=== PATIENT | female | born 1950 | race American Indian/Alaskan Native ===

== ENCOUNTER 2021-08-22 11:10 | Inpatient (IN) | payer MEDICARE ==
[2021-08-22] MEDS ORDERED: ONDANSETRON 4 MG/2 ML INJ IV ONE (13:32)
[2021-08-22] MEDS ORDERED: MORPHINE 4 MG/1 ML INJ IV ONE (13:32)
--- NOTE | 2021-08-22 13:32 | Emergency Department Report ---
ED General Adult HPI - General Chief complaint: Altered Mental Status Stated complaint: RT KNEE PAIN Time Seen by Provider: 08/22/21 12:56 Source: EMS Mode of arrival: Stretcher Limitations: No Limitations - History of Present Illness Initial comments: The patient presents to the emergency department via EMS for complaint of dizziness. Patient states she was walking to the bus stop and got severely dizzy. Patient states the dizziness caused her to lose her balance and she fell. Patient states that she had some mild chest tightness at the time but denies any lionel chest pain. Patient complains of neck, right knee pain, hip pain. Patient denies any shortness of breath, abdominal pain, or chest pain. -: Sudden Location: head, neck, lower extremity Severity scale (0 -10): 10 Quality: sharp Consistency: constant Improves with: immobilization Worsens with: movement Associated Symptoms: denies other symptoms Treatments Prior to Arrival: none - Related Data Allergies Allergy/AdvReac Type Severity Reaction Status Date / Time No Known Allergies Allergy Verified 08/22/21 11:18 ED Review of Systems ROS: Stated complaint: RT KNEE PAIN Other details as noted in HPI Comment: All other systems reviewed and negative Constitutional: denies: chills, fever Eyes: denies: eye pain, eye discharge, vision change ENT: denies: ear pain, throat pain Respiratory: denies: cough, shortness of breath, wheezing Cardiovascular: denies: chest pain, palpitations Endocrine: no symptoms reported Gastrointestinal: denies: abdominal pain, nausea, diarrhea Genitourinary: denies: urgency, dysuria, discharge Musculoskeletal: denies: back pain, joint swelling, arthralgia Skin: denies: rash, lesions Neurological: denies: headache, weakness, paresthesias Psychiatric: denies: anxiety, depression Hematological/Lymphatic: denies: easy bleeding, easy bruising ED Past Medical Hx - Past Medical History Previous Medical History?: Yes Hx Hypertension: Yes Hx Seizures: Yes - Surgical History Past Surgical History?: No - Social History Smoking Status: Current Every Day Smoker Substance Use Type: Marijuana ED Physical Exam - General Limitations: No Limitations General appearance: alert, in no apparent distress - Head Head exam: Present: atraumatic, normocephalic - Eye Eye exam: Present: normal appearance, PERRL, EOMI - ENT ENT exam: Present: mucous membranes dry - Neck Neck exam: Present: other (Tenderness palpation midline C-spine) - Respiratory Respiratory exam: Present: normal lung sounds bilaterally - Cardiovascular Cardiovascular Exam: Present: tachycardia - GI/Abdominal GI/Abdominal exam: Present: soft, normal bowel sounds. Absent: distended, tenderness - Extremities Exam Extremities exam: Present: other (Tender palpation of the right patella) - Neurological Exam Neurological exam: Present: alert, altered, CN II-XII intact. Absent: motor sensory deficit - Psychiatric Psychiatric exam: Present: normal affect, normal mood - Skin Skin exam: Present: warm, dry, intact, normal color. Absent: rash ED Course Vital Signs 08/22/21 08/22/21 08/22/21 11:14 12:58 14:19 Temperature 97.8 F 98.1 F Pulse Rate 106 H 94 H Respiratory 18 14 15 Rate Blood Pressure 113/73 Blood Pressure 106/61 124/82 [Left] O2 Sat by Pulse 99 96 Oximetry 08/22/21 16:06 Temperature Pulse Rate 99 H Respiratory 16 Rate Blood Pressure Blood Pressure 107/65 [Left] O2 Sat by Pulse 99 Oximetry ED Medical Decision Making - Lab Data Result diagrams: 08/22/21 13:31 08/22/21 13:31 Lab Results 08/22/21 08/22/21 08/22/21 Range/Units 13:31 13:31 15:51 WBC 8.0 (4.5-11.0) K/mm3 RBC 2.59 L (3.65-5.03) M/mm3 Hgb 7.3 L (10.1-14.3) gm/dl Hct 23.2 L (30.3-42.9) % MCV 90 (79-97) fl MCH 28 (28-32) pg MCHC 32 (30-34) % RDW 16.2 H (13.2-15.2) % Plt Count 480 H (140-440) K/mm3 Lymph % (Auto) 9.0 L (13.4-35.0) % [place] % (Auto) 4.5 (0.0-7.3) % Eos % (Auto) 0.0 (0.0-4.3) % Baso % (Auto) 0.1 (0.0-1.8) % Lymph # (Auto) 0.7 L (1.2-5.4) K/mm3 [place] # (Auto) 0.4 (0.0-0.8) K/mm3 Eos # (Auto) 0.0 (0.0-0.4) K/mm3 Baso # (Auto) 0.0 (0.0-0.1) K/mm3 Seg Neutrophils % 86.4 H (40.0-70.0) % Seg Neutrophils # 6.9 (1.8-7.7) K/mm3 Sodium 140 (137-145) mmol/L Potassium 3.3 L (3.6-5.0) mmol/L Chloride 100.6 (98-107) mmol/L Carbon Dioxide 28 (22-30) mmol/L Anion Gap 15 mmol/L BUN 13 (7-17) mg/dL Creatinine 0.8 (0.6-1.2) mg/dL Estimated GFR > 60 ml/min BUN/Creatinine Ratio 16 % Glucose 88 (65-100) mg/dL Calcium 8.8 (8.4-10.2) mg/dL Total Bilirubin 0.20 (0.1-1.2) mg/dL AST 18 (5-40) units/L ALT 12 (7-56) units/L Alkaline Phosphatase 67 (35-129) units/L Troponin T < 0.010 (0.00-0.029) ng/mL NT-Pro-B Natriuret Pep 300.2 (0-900) pg/mL Total Protein 6.5 (6.3-8.2) g/dL Albumin 3.7 L (3.9-5) g/dL Albumin/Globulin Ratio 1.3 % Urine Color Straw (Yellow) Urine Turbidity Clear (Clear) Urine pH 7.5 H (5.0-7.0) Ur Specific [place] 1.010 (1.003-1.030) Urine Protein 30 mg/dl (Negative) mg/dL Urine Glucose (UA) Negative (Negative) mg/dL Urine Ketones 80 (Negative) mg/dL Urine Blood Negative (Negative) Urine Nitrite Negative (Negative) Ur Reducing Substances Not Reportable Urine Bilirubin Negative (Negative) Urine Ictotest Not Reportable Urine Urobilinogen < 2.0 (<2.0) mg/dL Ur Leukocyte Esterase Negative (Negative) Urine WBC (Auto) 4.0 (0.0-6.0) /HPF Urine RBC (Auto) 2.0 (0.0-6.0) /HPF Urine Bacteria (Auto) 1+ (Negative) /HPF Amorphous Crystals 3+ Urine Mucus Few /HPF Urine Opiates Screen Urine Methadone Screen Ur Barbiturates Screen Ur Phencyclidine Scrn Ur Amphetamines Screen U Benzodiazepines Scrn Urine Cocaine Screen U Marijuana (THC) Screen Drugs of Abuse Note 08/22/21 Range/Units 15:51 WBC (4.5-11.0) K/mm3 RBC (3.65-5.03) M/mm3 Hgb (10.1-14.3) gm/dl Hct (30.3-42.9) % MCV (79-97) fl MCH (28-32) pg MCHC (30-34) % RDW (13.2-15.2) % Plt Count (140-440) K/mm3 Lymph % (Auto) (13.4-35.0) % [place] % (Auto) (0.0-7.3) % Eos % (Auto) (0.0-4.3) % Baso % (Auto) (0.0-1.8) % Lymph # (Auto) (1.2-5.4) K/mm3 [place] # (Auto) (0.0-0.8) K/mm3 Eos # (Auto) (0.0-0.4) K/mm3 Baso # (Auto) (0.0-0.1) K/mm3 Seg Neutrophils % (40.0-70.0) % Seg Neutrophils # (1.8-7.7) K/mm3 Sodium (137-145) mmol/L Potassium (3.6-5.0) mmol/L Chloride (98-107) mmol/L Carbon Dioxide (22-30) mmol/L Anion Gap mmol/L BUN (7-17) mg/dL Creatinine (0.6-1.2) mg/dL Estimated GFR ml/min BUN/Creatinine Ratio % Glucose (65-100) mg/dL Calcium (8.4-10.2) mg/dL Total Bilirubin (0.1-1.2) mg/dL AST (5-40) units/L ALT (7-56) units/L Alkaline Phosphatase (35-129) units/L Troponin T (0.00-0.029) ng/mL NT-Pro-B Natriuret Pep (0-900) pg/mL Total Protein (6.3-8.2) g/dL Albumin (3.9-5) g/dL Albumin/Globulin Ratio % Urine Color (Yellow) Urine Turbidity (Clear) Urine pH (5.0-7.0) Ur Specific [place] (1.003-1.030) Urine Protein (Negative) mg/dL Urine Glucose (UA) (Negative) mg/dL Urine Ketones (Negative) mg/dL Urine Blood (Negative) Urine Nitrite (Negative) Ur Reducing Substances Urine Bilirubin (Negative) Urine Ictotest Urine Urobilinogen (<2.0) mg/dL Ur Leukocyte Esterase (Negative) Urine WBC (Auto) (0.0-6.0) /HPF Urine RBC (Auto) (0.0-6.0) /HPF Urine Bacteria (Auto) (Negative) /HPF Amorphous Crystals Urine Mucus /HPF Urine Opiates Screen Negative Urine Methadone Screen Negative Ur Barbiturates Screen Negative Ur Phencyclidine Scrn Negative Ur Amphetamines Screen Negative U Benzodiazepines Scrn Negative Urine Cocaine Screen Negative U Marijuana (THC) Screen Positive Drugs of Abuse Note Disclamer - EKG Data -: EKG Interpreted by [place] EKG shows normal: sinus rhythm Rate: normal - Radiology Data Radiology results: report reviewed - Medical Decision Making Discussed results with patient including x-ray findings of intratrochanteric f racture right side Critical care attestation.: If time is entered above; I have spent that time in minutes in the direct care of this critically ill patient, excluding procedure time. ED Disposition Clinical Impression: Intertrochanteric fracture of right femur Disposition: ADMITTED INPATIENT Is pt being admited?: Yes Does the pt Need Aspirin: No Condition: Fair
[2021-08-22] MEDS ORDERED: SODIUM CHLORIDE 0.9% 1000 ML 1,000 ML IV ONE (13:33)
--- NOTE | 2021-08-22 14:17 | XRay Report ---
CHEST 1 VIEW INDICATION: dizziness. COMPARISON: None. FINDINGS: Support devices: None. Heart: Normal. Lungs/Pleura: No acute pulmonary or pleural findings. Lungs are mildly hyperexpanded. IMPRESSION: 1. No acute findings. Signer Name: Matthew Del Cid MD Signed: 08/22/2021 2:13 PM Workstation Name: [id number]
--- NOTE | 2021-08-22 14:18 | XRay Report ---
AP PELVIS INDICATION / CLINICAL INFORMATION: fall/pain COMPARISON: None available. FINDINGS: BONES / JOINT(S): There is a mildly comminuted, mildly displaced intertrochanteric proximal right fem ur fracture. No additional acute fractures are identified. Osteoarthrosis changes are noted at the hi ps and SI joints. There is mild subjective osteopenia. SOFT TISSUES: No significant abnormality. ADDITIONAL FINDINGS: None. IMPRESSION: Intertrochanteric proximal right femur fracture. Signer Name: Matthew Del Cid MD Signed: 08/22/2021 2:14 PM Workstation Name: [email or web address]
--- NOTE | 2021-08-22 14:19 | XRay Report ---
RIGHT KNEE 2 VIEWS INDICATION / CLINICAL INFORMATION: fall/pain COMPARISON: None available. FINDINGS: BONES / JOINT(S): No acute fracture or subluxation. There is mild tricompartmental osteoarthrosis. SOFT TISSUES: No significant abnormality. ADDITIONAL FINDINGS: None. IMPRESSION: No acute findings. Signer Name: Matthew Del Cid MD Signed: 08/22/2021 2:15 PM Workstation Name: [email or web address]
[2021-08-22 14:36] LABS: Basophils % (Auto) 0.1 % (0.0-1.8); Hematocrit 23.2 % (30.3-42.9); Hemoglobin 7.3 gm/dl (10.1-14.3); Lymphocytes # (Auto) 0.7 K/mm3 (1.2-5.4); Mean Corpuscular HGB Conc 32 % (30-34); Mean Corpuscular Volume 90 fl (79-97); Monocytes # (Auto) 0.4 K/mm3 (0.0-0.8); Monocytes % (Auto) 4.5 % (0.0-7.3); Platelet Count 480 K/mm3 (140-440); Red Blood Count 2.59 M/mm3 (3.65-5.03); Red Cell Distribution Width 16.2 % (13.2-15.2)
[2021-08-22 14:40] LABS: Alanine Aminotransferase 12 units/L (7-56); Albumin 3.7 g/dL (3.9-5); BUN/Creatinine Ratio 16; Blood Urea Nitrogen 13 mg/dL (7-17); Calcium 8.8 mg/dL (8.4-10.2); Hemolysis Index 4
[2021-08-22 16:25] LABS: Amphetamine Screen,Urine Negative; Benzodiazepines Screen,Urine Negative; Cocaine Screen,Urine Negative; Methadone Screen,Urine Negative; Opiate Screen,Urine Negative
[2021-08-22 16:28] LABS: Amorphous Crystals,Urine 3+; Bacteria,Urine 1+ /HPF (Negative); Mucus,Urine FEW /HPF
[2021-08-22 16:38] LABS: Cannabinoid Screen,Urine Positive
--- NOTE | 2021-08-22 16:55 | Cat Scan Report ---
CT HEAD WITHOUT CONTRAST INDICATION / CLINICAL INFORMATION: dizziness. Status post fall. TECHNIQUE: All CT scans at this location are performed using CT dose reduction for ALARA by means of automated exposure control. COMPARISON: None available. FINDINGS: HEMORRHAGE: None. EXTRA-AXIAL SPACES: Mildly prominent likely related to cortical atrophy. VENTRICULAR SYSTEM: Mildly enlarged likely related to central atrophy. CEREBRAL PARENCHYMA: Mild white matter hypodensities likely representing microangiopathy. No acute te rritorial infarct. MIDLINE SHIFT / HERNIATION: None. CEREBELLUM / BRAINSTEM: No significant abnormality. ORBITS: Normal as visualized. SOFT TISSUES: No significant abnormality. SKULL: No significant abnormality. PARANASAL SINUSES / MASTOID AIR CELLS: Normal as visualized. ADDITIONAL FINDINGS: None. IMPRESSION: 1. No acute intracranial abnormality. . Chronic and age-related findings. Signer Name: Maria Luisa Ruelas MD Signed: 08/22/2021 4:50 PM Workstation Name: [id number]
--- NOTE | 2021-08-22 16:56 | Cat Scan Report ---
CT CERVICAL SPINE WITHOUT CONTRAST INDICATION / CLINICAL INFORMATION: neck pain s/p fall. TECHNIQUE: Axial CT images were obtained through the cervical spine. Sagittal and coronal reformatted images were produced. All CT scans at this location are performed using CT dose reduction for ALARA by means of automated exposure control. COMPARISON: None available. FINDINGS: VERTEBRAE: No significant abnormality. ALIGNMENT: No significant abnormality. DISC SPACES: Mild multilevel discogenic spondylosis. FACET JOINTS: Mild multilevel facet spondylosis. CRANIOCERVICAL JUNCTION:No significant abnormality. SPINAL CANAL: No significant abnormality. PARASPINAL SOFT TISSUES: No significant abnormality. ADDITIONAL FINDINGS: None. LUNG APICES: No significant abnormality of visualized lungs. IMPRESSION: 1. No acute abnormality. Signer Name: Maria Luisa Ruelas MD Signed: 08/22/2021 4:51 PM Workstation Name: [id number]
--- NOTE | 2021-08-22 16:57 | Cat Scan Report ---
CTA CHEST WITH CONTRAST INDICATION / CLINICAL INFORMATION: near syncope/tachycardic chest pain. TECHNIQUE: Axial CT images were obtained through the chest after injection of 100 cc of Omnipaque 350 IV contrast. 3 plane MIP and/or 3D reconstructions were produced. All CT scans at this location are performed using CT dose reduction for ALARA by means of automated exposure control. COMPARISON: None available. FINDINGS: PULMONARY ARTERIES: No pulmonary emboli. THORACIC AORTA: Mild atherosclerotic calcification without acute abnormality. HEART: No significant abnormality. CORONARY ARTERY CALCIFICATION: Mild. MEDIASTINUM / TU: No significant abnormality. PLEURA: No pleural effusion. No pneumothorax. LUNGS: No acute air space or interstitial disease. ADDITIONAL FINDINGS: None. UPPER ABDOMEN: No acute findings. SKELETAL STRUCTURES: No significant osseous abnormality. IMPRESSION: 1. No CT evidence for pulmonary embolism. 2. No acute findings. Signer Name: Maksim Arnett DO Signed: 08/22/2021 4:52 PM Workstation Name: [email or web address]
[2021-08-22 17:20] LABS: Bilirubin,Urine Negative (Negative); Blood,Urine Negative (Negative); Color,Urine Straw (Yellow)
[2021-08-22 17:21] LABS: PH,Urine 7.5 (5.0-7.0); Urobilinogen,Urine < 2.0 mg/dL (<2.0)
[2021-08-22] MEDS ORDERED: ACETAMINOPHEN 325 MG TAB PO PRN (17:58)
[2021-08-22] MEDS ORDERED: ONDANSETRON 4 MG/2 ML INJ IV PRN (17:58)
[2021-08-22] MEDS ORDERED: ALBUTEROL 2.5 MG/3 ML NEBU IH PRN (17:58)
--- NOTE | 2021-08-22 17:58 | History and Physical Report ---
History of Present Illness Chief complaint: I fell and hurt my leg History of present illness: 71 YO Female with HTN, Seizure Disorder, Nicotine Dependence presents ED for evaluation. Patient reports "I got dizzy and I fell down and hurt my leg". Patient states that she was in her usual state of health while walking to the bus stop and experienced a sudden onset of dizziness. Patient states that she subsequently lost her balance and fell landing on her right hip. Patient states that she felt immediate pain to her right hip. Patient is sharp in nature, 10 out of 10, worsened with movement, relieved somewhat with nonmovement. Patient was unable to stand and bear weight on her right leg. EMS was notified and upon arrival the patient was found to be in distress and subsequent transported to [facility] for further care and evaluation of the aforementioned symptoms. The patient was seen and evaluated in the emergency department. All lab and imaging studies reviewed. Patient found to have a right intertrochanteric femur fracture. Orthopedic surgery team consulted in ED. Patient denies fever, chills, chest pain, palpitation, productive cough, skin rash and recent contact, known exposure to COVID-19. No prior admission for review. No medication listed at time of admission for reconciliation. Advanced care planning conducted in ED. Past History Past Medical History: hypertension, seizures, other (See HPI) Past Surgical History: No surgical history Social history: smoking Family history: diabetes, hypertension Medications and Allergies Allergies Allergy/AdvReac Type Severity Reaction Status Date / Time No Known Allergies Allergy Verified 08/22/21 11:18 Review of Systems Constitutional: weakness, no weight loss, no weight gain, no fever, no sweats Ears, nose, mouth and throat: no ear pain, no nasal congestion, no nasal discharge, no sinus pressure Breasts: no change in shape Cardiovascular: no chest pain, no orthopnea, no palpitations, no edema, no syncope Respiratory: no cough, no cough with sputum, no excessive sputum, no shortness of breath Gastrointestinal: no nausea, no vomiting, no diarrhea Genitourinary Female: no flank pain, no dysuria, no urinary frequency, no urgency Rectal: no pain, no incontinence, no bleeding Musculoskeletal: other (Right hip pain), no neck stiffness, no neck pain, no arm numbness/tingling, no low back pain, no shooting leg pain, no leg numbness /tingling Integumentary: no boils Neurological: no head injury, no paralysis, no weakness Psychiatric: no anxiety, no change in sleep habits, no insomnia, no suicidal ideation, no disorientation Endocrine: no cold intolerance, no polyphagia, no nocturia Hematologic/Lymphatic: no easy bruising Allergic/Immunologic: no urticaria Exam - Constitutional Vitals: Temp Pulse Resp BP Pulse Ox 98.1 F 101 H 16 113/70 100 08/22/21 12:58 08/22/21 17:51 08/22/21 17:51 08/22/21 17:51 08/22/21 17:51 General appearance: Present: mild distress - EENT Eyes: Present: PERRL ENT: hearing intact, clear oral mucosa - Neck Neck: Present: supple, normal ROM - Respiratory Respiratory effort: normal Respiratory: bilateral: CTA - Cardiovascular Heart Sounds: Present: S1 & S2. Absent: rub, click - Extremities Extremities: pulses symmetrical, No edema, abnormal (Right hip pain,) Peripheral Pulses: within normal limits - Abdominal General gastrointestinal: Present: soft, non-tender, non-distended, normal bowel sounds Female genitourinary: Present: normal - Integumentary Integumentary: Present: clear, warm, dry - Musculoskeletal Musculoskeletal: gait normal, strength equal bilaterally - Psychiatric Psychiatric: appropriate mood/affect, intact judgment & insight - Neurologic Neurologic: CNII-XII intact, moves all extremities HEART Score - HEART Score Troponin: Troponin T < 0.010 ng/mL (0.00-0.029) 08/22/21 13:31 Results - Labs CBC & Chem 7: 08/22/21 13:31 08/22/21 13:31 Labs: Abnormal lab results 08/22/21 08/22/21 08/22/21 Range/Units 13:31 13:31 15:51 RBC 2.59 L (3.65-5.03) M/mm3 Hgb 7.3 L (10.1-14.3) gm/dl Hct 23.2 L (30.3-42.9) % RDW 16.2 H (13.2-15.2) % Plt Count 480 H (140-440) K/mm3 Lymph % (Auto) 9.0 L (13.4-35.0) % Lymph # (Auto) 0.7 L (1.2-5.4) K/mm3 Seg Neutrophils % 86.4 H (40.0-70.0) % Potassium 3.3 L (3.6-5.0) mmol/L Albumin 3.7 L (3.9-5) g/dL Urine pH 7.5 H (5.0-7.0) Assessment and Plan - Patient Problems (1) Intertrochanteric fracture of right femur Current Visit: Yes Status: Acute Plan to address problem: Orthopedic surgery team consulted. Patient pending surgical intervention after medical optimization, stabilization and pain control. IV fluid resuscitation therapy, supportive care. (2) Seizure disorder Current Visit: Yes Status: Acute Plan to address problem: Seizure precautions, continue antiepileptic therapy, supportive care, neurochecks. (3) Nicotine dependence Current Visit: Yes Status: Acute Qualifiers: Nicotine product type: cigarettes Substance use status: in withdrawal Qualified Code(s): F17.213 - Nicotine dependence, cigarettes, with withdrawal Plan to address problem: Smoking cessation counseling, behavior change counseling, supportive care, +15 minutes. (4) DVT prophylaxis Current Visit: Yes Status: Acute Plan to address problem: SCD to bilateral lower extremities while in bed (5) Advance care planning Current Visit: Yes Status: Acute Plan to address problem: Disease education conducted, care plan discussed, diagnoses discussed, prognosis discussed, patient is full code, patient acknowledges understanding and agre ement with care plan, +30 minutes. (6) Preventative health care Current Visit: Yes Status: Acute Plan to address problem: Patient counseled regarding risk factor reduction, home safety, outpatient follow-up with primary care physician for all age and risk factor appropriate screening test.
[2021-08-22] MEDS: HYDROmorphone 0.5 MG/0.5 ML INJ IV PRN ×2 (18:54→22:58)
[2021-08-23 06:58] LABS: Basophils % (Auto) 0.2 % (0.0-1.8); Eosinophils % (Auto) 0.1 % (0.0-4.3); Lymphocytes % (Auto) 16.6 % (13.4-35.0); Mean Corpuscular HGB Conc 32 % (30-34); Mean Corpuscular Volume 90 fl (79-97); Monocytes # (Auto) 0.5 K/mm3 (0.0-0.8); Monocytes % (Auto) 8.8 % (0.0-7.3); Platelet Count 410 K/mm3 (140-440); Red Blood Count 2.14 M/mm3 (3.65-5.03); Red Cell Distribution Width 16.7 % (13.2-15.2)
[2021-08-23 07:02] LABS: Hematocrit 19.2 % (30.3-42.9)
[2021-08-23 07:09] LABS: Blood Urea Nitrogen 12 mg/dL (7-17); Calcium 8.3 mg/dL (8.4-10.2); Hemolysis Index 2
[2021-08-23 07:28] LABS: BUN/Creatinine Ratio 17
[2021-08-23] MEDS ORDERED: SODIUM CHLORIDE 0.9% 500 ML 500 ML IV NR (07:43)
--- NOTE | 2021-08-23 07:48 | Progress Note ---
Assessment and Plan Assessment and plan: #Intertrochanteric fracture of right femur -Fracture seen on x-ray of hip -Supportive care, as needed pain medications -Orthopedic surgery team consulted #Normocytic asymptomatic anemia -Hemoglobin 6.0 this morning, 7.3 yesterday -1 packed red blood cells ordered -We will repeat hemoglobin after transfusion complete -We will transfuse for hemoglobin less than 7 #Hypertension -Patient reports taking medication at home, unable to recall at this time -We will restart home blood pressure medication once reconciliation complete -Blood pressure controlled currently, will continue to monitor #history of seizure disorder-stable -continue Keppra at home dose -Seizure precautions #Hypokalemia -will replete and monitor #Nicotine dependence #Tobacco cessation counseling -smoking cessation counseling, behavior change counseling, supportive care, +15 minutes. #Advanced care planning -Disease education conducted, care plan discussed, diagnoses discussed, prognosis discussed, patient is full code, patient acknowledges understanding and agreement with care plan, +30 minutes. History Interval history: No acute events overnight. Patient reports 10 out of 10 pain in right hip. We discussed current care plan and that she should ask for pain medications since they are as needed. Transfusions being started at time of interview. Hospitalist Physical - Physical exam Narrative exam: GENERAL: Thin woman. Tearful, but in no acute distress. HEENT: Nasal cannula in place at 2 L/min. CHEST/LUNGS: CTAB on supplemental O2. HEART/CARDIOVASCULAR: RRR. No murmur, rubs or gallops appreciated. ABDOMEN: +BS. NT/ND. SKIN: No rashes noted. NEURO: No focal motor deficit. Follows all commands. MUSCULOSKELETAL: No joint effusion. Right hip TTP. EXTREMITIES: No cyanosis, clubbing or edema. PSYCH: Cooperative. - Constitutional Vitals: Temp Pulse Resp BP Pulse Ox 98.7 F 99 H 16 165/61 88 08/23/21 04:24 08/23/21 04:24 08/23/21 04:24 08/23/21 04:30 08/23/21 04:30 General appearance: Present: mild distress HEART Score - HEART Score Troponin: Troponin T < 0.010 ng/mL (0.00-0.029) 08/22/21 13:31 Results - Labs CBC & Chem 7: 08/23/21 04:00 08/23/21 05:45 Labs: Laboratory Last Values WBC 5.8 K/mm3 (4.5-11.0) 08/23/21 04:00 RBC 2.14 M/mm3 (3.65-5.03) L 08/23/21 04:00 Hgb 6.0 gm/dl (10.1-14.3) L 08/23/21 04:00 Hct 19.2 % (30.3-42.9) L* 08/23/21 04:00 MCV 90 fl (79-97) 08/23/21 04:00 MCH 28 pg (28-32) 08/23/21 04:00 MCHC 32 % (30-34) 08/23/21 04:00 RDW 16.7 % (13.2-15.2) H 08/23/21 04:00 Plt Count 410 K/mm3 (140-440) 08/23/21 04:00 Lymph % (Auto) 16.6 % (13.4-35.0) 08/23/21 04:00 [place] % (Auto) 8.8 % (0.0-7.3) H 08/23/21 04:00 Eos % (Auto) 0.1 % (0.0-4.3) 08/23/21 04:00 Baso % (Auto) 0.2 % (0.0-1.8) 08/23/21 04:00 Lymph # (Auto) 1.0 K/mm3 (1.2-5.4) L 08/23/21 04:00 [place] # (Auto) 0.5 K/mm3 (0.0-0.8) 08/23/21 04:00 Eos # (Auto) 0.0 K/mm3 (0.0-0.4) 08/23/21 04:00 Baso # (Auto) 0.0 K/mm3 (0.0-0.1) 08/23/21 04:00 Seg Neutrophils % 74.3 % (40.0-70.0) H 08/23/21 04:00 Seg Neutrophils # 4.3 K/mm3 (1.8-7.7) 08/23/21 04:00 Sodium 138 mmol/L (137-145) 08/23/21 05:45 Potassium 3.5 mmol/L (3.6-5.0) L 08/23/21 05:45 Chloride 100.1 mmol/L (98-107) 08/23/21 05:45 Carbon Dioxide 29 mmol/L (22-30) 08/23/21 05:45 Anion Gap 12 mmol/L 08/23/21 05:45 BUN 12 mg/dL (7-17) 08/23/21 05:45 Creatinine 0.7 mg/dL (0.6-1.2) 08/23/21 05:45 Estimated GFR > 60 ml/min 08/23/21 05:45 BUN/Creatinine Ratio 17 % 08/23/21 05:45 Glucose 91 mg/dL (65-100) 08/23/21 05:45 POC Glucose 82 mg/dL (70-105) 08/22/21 22:10 Calcium 8.3 mg/dL (8.4-10.2) L 08/23/21 05:45 Total Bilirubin 0.20 mg/dL (0.1-1.2) 08/22/21 13:31 AST 18 units/L (5-40) 08/22/21 13:31 ALT 12 units/L (7-56) 08/22/21 13:31 Alkaline Phosphatase 67 units/L (35-129) 08/22/21 13:31 Troponin T < 0.010 ng/mL (0.00-0.029) 08/22/21 13:31 NT-Pro-B Natriuret Pep 300.2 pg/mL (0-900) 08/22/21 13:31 Total Protein 6.5 g/dL (6.3-8.2) 08/22/21 13:31 Albumin 3.7 g/dL (3.9-5) L 08/22/21 13:31 Albumin/Globulin Ratio 1.3 % 08/22/21 13:31 Urine Color Straw (Yellow) 08/22/21 15:51 Urine Turbidity Clear (Clear) 08/22/21 15:51 Urine pH 7.5 (5.0-7.0) H 08/22/21 15:51 Ur Specific [place] 1.010 (1.003-1.030) 08/22/21 15:51 Urine Protein 30 mg/dl mg/dL (Negative) 08/22/21 15:51 Urine Glucose (UA) Negative mg/dL (Negative) 08/22/21 15:51 Urine Ketones 80 mg/dL (Negative) 08/22/21 15:51 Urine Blood Negative (Negative) 08/22/21 15:51 Urine Nitrite Negative (Negative) 08/22/21 15:51 Ur Reducing Substances Not Reportable 08/22/21 15:51 Urine Bilirubin Negative (Negative) 08/22/21 15:51 Urine Ictotest Not Reportable 08/22/21 15:51 Urine Urobilinogen < 2.0 mg/dL (<2.0) 08/22/21 15:51 Ur Leukocyte Esterase Negative (Negative) 08/22/21 15:51 Urine WBC (Auto) 4.0 /HPF (0.0-6.0) 08/22/21 15:51 Urine RBC (Auto) 2.0 /HPF (0.0-6.0) 08/22/21 15:51 Urine Bacteria (Auto) 1+ /HPF (Negative) 08/22/21 15:51 Amorphous Crystals 3+ 08/22/21 15:51 Urine Mucus Few /HPF 08/22/21 15:51 Urine Opiates Screen Negative 08/22/21 15:51 Urine Methadone Screen Negative 08/22/21 15:51 Ur Barbiturates Screen Negative 08/22/21 15:51 Ur Phencyclidine Scrn Negative 08/22/21 15:51 Ur Amphetamines Screen Negative 08/22/21 15:51 U Benzodiazepines Scrn Negative 08/22/21 15:51 Urine Cocaine Screen Negative 08/22/21 15:51 U Marijuana (THC) Screen Positive 08/22/21 15:51 Drugs of Abuse Note Disclamer 08/22/21 15:51 Dior/IV: Voiding Method Bedpan Active Medications - Current Medications Current Medications: Generic Name Dose Route Start Last Admin Trade Name Freq PRN Reason Stop Dose Admin Acetaminophen 650 mg 08/22/21 17:58 Acetaminophen 325 Mg Tab PO Q4H PRN Pain MILD(1-3)/Fever >100.5/CENTENO Albuterol 2.5 mg 08/22/21 17:58 Albuterol 2.5 Mg/3 Ml Nebu IH Q4HRT PRN Shortness Of Breath Hydromorphone HCl 0.5 mg 08/22/21 17:58 08/22/21 22:58 Hydromorphone 0.5 Mg/0.5 Ml Inj IV 0.5 mg Q3H PRN Administration Pain , Severe (7-10) Sodium Chloride 500 mls @ 0 mls/hr 08/23/21 07:43 Nacl 0.9% 500 Ml IV 08/23/21 07:44 ONCE ONE As Directed Ondansetron HCl 4 mg 08/22/21 17:58 Ondansetron 4 Mg/2 Ml Inj IV Q8H PRN Nausea And Vomiting Oxycodone/Acetaminophen 1 tab 08/22/21 17:58 Oxycodone /Acetaminophen 5-325mg Tab PO Q6H PRN Pain, Moderate (4-6) Sodium Chloride 10 ml 08/22/21 22:00 08/22/21 22:58 Sodium Chloride 0.9% 10 Ml Flush Syringe IV 10 ml BID FABIAN Administration Sodium Chloride 10 ml 08/22/21 17:58 08/22/21 18:57 Sodium Chloride 0.9% 10 Ml Flush Syringe IV 10 ml PRN PRN Administration LINE FLUSH
[2021-08-23] MEDS: oxyCODONE /ACETAMINOPHEN 5-325MG TAB PO PRN (11:39)
--- NOTE | 2021-08-23 13:27 | Electrocardiograph Report ---
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
--- NOTE | 2021-08-23 14:34 | Consultation ---
History of Present Illness - HPI Consult date: 08/23/21 Consult reason: joint pain, fracture History of present illness: 71 y/o female with c/o right hip pain after fall prior to admission, states she got dizzy and fell down unable to WB afterwards brought to the ED at [facility] where plain xrays revealed minimal displaced intertrochanter fracture right hip... Past History Past Medical History: hypertension, seizures, other (See HPI) Past Surgical History: No surgical history Social history: smoking Family history: diabetes, hypertension Medications and Allergies Allergies Allergy/AdvReac Type Severity Reaction Status Date / Time No Known Allergies Allergy Verified 08/22/21 11:18 Active Meds: Active Medications Acetaminophen (Acetaminophen 325 Mg Tab) 650 mg PO Q4H PRN PRN Reason: Pain MILD(1-3)/Fever >100.5/CENTENO Albuterol (Albuterol 2.5 Mg/3 Ml Nebu) 2.5 mg IH Q4HRT PRN PRN Reason: Shortness Of Breath Hydromorphone HCl (Hydromorphone 0.5 Mg/0.5 Ml Inj) 0.5 mg IV Q3H PRN PRN Reason: Pain , Severe (7-10) Last Admin: 08/22/21 22:58 Dose: 0.5 mg Sodium Chloride (Nacl 0.9% 500 Ml) 500 mls @ 0 mls/hr IV ONCE NR Stop: 08/24/21 07:42 Ondansetron HCl (Ondansetron 4 Mg/2 Ml Inj) 4 mg IV Q8H PRN PRN Reason: Nausea And Vomiting Oxycodone/Acetaminophen (Oxycodone /Acetaminophen 5-325mg Tab) 1 tab PO Q6H PRN PRN Reason: Pain, Moderate (4-6) Last Admin: 08/23/21 11:39 Dose: 1 tab Sodium Chloride (Sodium Chloride 0.9% 10 Ml Flush Syringe) 10 ml IV BID FABIAN Last Admin: 08/22/21 22:58 Dose: 10 ml Sodium Chloride (Sodium Chloride 0.9% 10 Ml Flush Syringe) 10 ml IV PRN PRN PRN Reason: LINE FLUSH Last Admin: 08/22/21 18:57 Dose: 10 ml Physical Examination - Physical exam Narrative exam: right hip - moderated swelling, skin intact, tender proximally, dec AROM, distal n/v intact.... Assessment and Plan Right intertrochanter hip fracture recommendations, will require operative fixation with IM nail....followed PT evaluation and rehab....
[2021-08-23 15:44] LABS: Hematocrit 23.8 % (30.3-42.9); Hemoglobin 7.5 gm/dl (10.1-14.3)
[2021-08-23] MEDS: HYDROmorphone 0.5 MG/0.5 ML INJ IV PRN (15:59)
[2021-08-24 05:53] LABS: Hematocrit 23.5 % (30.3-42.9); Hemoglobin 7.6 gm/dl (10.1-14.3); Mean Corpuscular HGB Conc 32 % (30-34); Mean Corpuscular Volume 88 fl (79-97); Platelet Count 404 K/mm3 (140-440); Red Blood Count 2.66 M/mm3 (3.65-5.03)
--- NOTE | 2021-08-24 08:07 | Progress Note ---
Assessment and Plan Assessment and plan: #Intertrochanteric fracture of right femur -Fracture seen on x-ray of hip -Supportive care, as needed pain medications -Orthopedic surgery team consulted, plan for IM nail fixation early next week #Normocytic asymptomatic anemia-improved -Hemoglobin improved to 7.6 -s/p 1 packed red blood cells -will transfuse for hemoglobin less than 7 #Hypertension -Patient reports taking medication at home, unable to recall at this time -We will restart home blood pressure medication once reconciliation complete -Blood pressure controlled currently, will continue to monitor #Hypokalemia -will replete and monitor #Nicotine dependence #Tobacco cessation counseling -smoking cessation counseling, behavior change counseling, supportive care, +15 minutes. #Advanced care planning -Disease education conducted, care plan discussed, diagnoses discussed, prognosis discussed, patient is full code, patient acknowledges understanding and agreement with care plan, +30 minutes. History Interval history: No acute events overnight. Patient reports improvement in hip pain with PRN pain medications. Patient has been refusing vital signs. We discussed importance of vital signs needing observed. Hospitalist Physical - Physical exam Narrative exam: GENERAL: Thin woman. Tearful, but in no acute distress. HEENT: Normocephalic, atraumatic. CHEST/LUNGS: CTAB on room air HEART/CARDIOVASCULAR: RRR. No murmur, rubs or gallops appreciated. ABDOMEN: +BS. NT/ND. NEURO: No focal motor deficit. Follows all commands. MUSCULOSKELETAL: No joint effusion. Right hip TTP. EXTREMITIES: No cyanosis, clubbing or edema. PSYCH: Cooperative. - Constitutional Vitals: Temp Pulse Resp BP Pulse Ox 99.2 F 114 H 18 126/83 97 08/23/21 14:55 08/23/21 14:55 08/23/21 14:55 08/23/21 14:55 08/23/21 21:00 General appearance: Present: mild distress HEART Score - HEART Score Troponin: Troponin T < 0.010 ng/mL (0.00-0.029) 08/22/21 13:31 Results - Labs CBC & Chem 7: 08/24/21 05:11 08/23/21 05:45 Labs: Laboratory Last Values WBC 9.9 K/mm3 (4.5-11.0) 08/24/21 05:11 RBC 2.66 M/mm3 (3.65-5.03) L 08/24/21 05:11 Hgb 7.6 gm/dl (10.1-14.3) L 08/24/21 05:11 Hct 23.5 % (30.3-42.9) L 08/24/21 05:11 MCV 88 fl (79-97) 08/24/21 05:11 MCH 29 pg (28-32) 08/24/21 05:11 MCHC 32 % (30-34) 08/24/21 05:11 RDW 16.0 % (13.2-15.2) H 08/24/21 05:11 Plt Count 404 K/mm3 (140-440) 08/24/21 05:11 Lymph % (Auto) 16.6 % (13.4-35.0) 08/23/21 04:00 [place] % (Auto) 8.8 % (0.0-7.3) H 08/23/21 04:00 Eos % (Auto) 0.1 % (0.0-4.3) 08/23/21 04:00 Baso % (Auto) 0.2 % (0.0-1.8) 08/23/21 04:00 Lymph # (Auto) 1.0 K/mm3 (1.2-5.4) L 08/23/21 04:00 [place] # (Auto) 0.5 K/mm3 (0.0-0.8) 08/23/21 04:00 Eos # (Auto) 0.0 K/mm3 (0.0-0.4) 08/23/21 04:00 Baso # (Auto) 0.0 K/mm3 (0.0-0.1) 08/23/21 04:00 Seg Neutrophils % 74.3 % (40.0-70.0) H 08/23/21 04:00 Seg Neutrophils # 4.3 K/mm3 (1.8-7.7) 08/23/21 04:00 Sodium 138 mmol/L (137-145) 08/23/21 05:45 Potassium 3.5 mmol/L (3.6-5.0) L 08/23/21 05:45 Chloride 100.1 mmol/L (98-107) 08/23/21 05:45 Carbon Dioxide 29 mmol/L (22-30) 08/23/21 05:45 Anion Gap 12 mmol/L 08/23/21 05:45 BUN 12 mg/dL (7-17) 08/23/21 05:45 Creatinine 0.7 mg/dL (0.6-1.2) 08/23/21 05:45 Estimated GFR > 60 ml/min 08/23/21 05:45 BUN/Creatinine Ratio 17 % 08/23/21 05:45 Glucose 91 mg/dL (65-100) 08/23/21 05:45 POC Glucose 82 mg/dL (70-105) 08/22/21 22:10 Calcium 8.3 mg/dL (8.4-10.2) L 08/23/21 05:45 Total Bilirubin 0.20 mg/dL (0.1-1.2) 08/22/21 13:31 AST 18 units/L (5-40) 08/22/21 13:31 ALT 12 units/L (7-56) 08/22/21 13:31 Alkaline Phosphatase 67 units/L (35-129) 08/22/21 13:31 Troponin T < 0.010 ng/mL (0.00-0.029) 08/22/21 13:31 NT-Pro-B Natriuret Pep 300.2 pg/mL (0-900) 08/22/21 13:31 Total Protein 6.5 g/dL (6.3-8.2) 08/22/21 13:31 Albumin 3.7 g/dL (3.9-5) L 08/22/21 13:31 Albumin/Globulin Ratio 1.3 % 08/22/21 13:31 Urine Color Straw (Yellow) 08/22/21 15:51 Urine Turbidity Clear (Clear) 08/22/21 15:51 Urine pH 7.5 (5.0-7.0) H 08/22/21 15:51 Ur Specific [place] 1.010 (1.003-1.030) 08/22/21 15:51 Urine Protein 30 mg/dl mg/dL (Negative) 08/22/21 15:51 Urine Glucose (UA) Negative mg/dL (Negative) 08/22/21 15:51 Urine Ketones 80 mg/dL (Negative) 08/22/21 15:51 Urine Blood Negative (Negative) 08/22/21 15:51 Urine Nitrite Negative (Negative) 08/22/21 15:51 Ur Reducing Substances Not Reportable 08/22/21 15:51 Urine Bilirubin Negative (Negative) 08/22/21 15:51 Urine Ictotest Not Reportable 08/22/21 15:51 Urine Urobilinogen < 2.0 mg/dL (<2.0) 08/22/21 15:51 Ur Leukocyte Esterase Negative (Negative) 08/22/21 15:51 Urine WBC (Auto) 4.0 /HPF (0.0-6.0) 08/22/21 15:51 Urine RBC (Auto) 2.0 /HPF (0.0-6.0) 08/22/21 15:51 Urine Bacteria (Auto) 1+ /HPF (Negative) 08/22/21 15:51 Amorphous Crystals 3+ 08/22/21 15:51 Urine Mucus Few /HPF 08/22/21 15:51 Urine Opiates Screen Negative 08/22/21 15:51 Urine Methadone Screen Negative 08/22/21 15:51 Ur Barbiturates Screen Negative 08/22/21 15:51 Ur Phencyclidine Scrn Negative 08/22/21 15:51 Ur Amphetamines Screen Negative 08/22/21 15:51 U Benzodiazepines Scrn Negative 08/22/21 15:51 Urine Cocaine Screen Negative 08/22/21 15:51 U Marijuana (THC) Screen Positive 08/22/21 15:51 Drugs of Abuse Note Disclamer 08/22/21 15:51 Blood Type B POSITIVE 08/23/21 08:18 Antibody Screen Negative 08/23/21 08:18 Crossmatch See Detail 08/23/21 08:18 Dior/IV: Voiding Method Bedpan Active Medications - Current Medications Current Medications: Generic Name Dose Route Start Last Admin Trade Name Freq PRN Reason Stop Dose Admin Acetaminophen 650 mg 08/22/21 17:58 Acetaminophen 325 Mg Tab PO Q4H PRN Pain MILD(1-3)/Fever >100.5/CENTENO Albuterol 2.5 mg 08/22/21 17:58 Albuterol 2.5 Mg/3 Ml Nebu IH Q4HRT PRN Shortness Of Breath Hydromorphone HCl 0.5 mg 08/22/21 17:58 08/23/21 15:59 Hydromorphone 0.5 Mg/0.5 Ml Inj IV 0.5 mg Q3H PRN Administration Pain , Severe (7-10) Ondansetron HCl 4 mg 08/22/21 17:58 Ondansetron 4 Mg/2 Ml Inj IV Q8H PRN Nausea And Vomiting Oxycodone/Acetaminophen 1 tab 08/22/21 17:58 08/23/21 11:39 Oxycodone /Acetaminophen 5-325mg Tab PO 1 tab Q6H PRN Administration Pain, Moderate (4-6) Sodium Chloride 10 ml 08/22/21 22:00 08/23/21 22:00 Sodium Chloride 0.9% 10 Ml Flush Syringe IV Not Given BID FABIAN Sodium Chloride 10 ml 08/22/21 17:58 08/22/21 18:57 Sodium Chloride 0.9% 10 Ml Flush Syringe IV 10 ml PRN PRN Administration LINE FLUSH
[2021-08-24] MEDS: HYDROmorphone 0.5 MG/0.5 ML INJ IV PRN ×2 (08:38→22:22)
[2021-08-24] MEDS: HEPARIN 5,000 UNIT/1 ML VIAL SUB-Q SCH ×2 (13:00→22:17)
[2021-08-24] MEDS ORDERED: LEVETIRACETAM 1000 MG PO SCH (22:00)
[2021-08-24] MEDS: levETIRAcetam 500 MG TAB PO SCH (22:18)
[2021-08-25] MEDS: HYDROmorphone 0.5 MG/0.5 ML INJ IV PRN ×2 (06:06→08:52)
--- NOTE | 2021-08-25 07:11 | Progress Note ---
Assessment and Plan Assessment and plan: #Intertrochanteric fracture of right femur -Fracture seen on x-ray of hip -Supportive care, as needed pain medications -Orthopedic surgery team consulted, plan for IM nail fixation early next week #Normocytic asymptomatic anemia-improved -s/p 1 packed red blood cells -will transfuse for hemoglobin less than 7 #Hypertension -Patient reports taking medication at home, unable to recall at this time -We will restart home blood pressure medication once reconciliation complete -Blood pressure controlled currently, will continue to monitor #Hypokalemia -will replete and monitor #Nicotine dependence #Tobacco cessation counseling -smoking cessation counseling, behavior change counseling, supportive care, +15 minutes. #Advanced care planning -Disease education conducted, care plan discussed, diagnoses discussed, prognosis discussed, patient is full code, patient acknowledges understanding and agreement with care plan, +30 minutes. History Interval history: No acute events overnight. Patient stable at this time. Has been requesting as needed pain medications. Currently has a 3 out of 10 pain and her hip. She has no complaints at this time. Hospitalist Physical - Physical exam Narrative exam: GENERAL: Thin woman. Tearful, but in no acute distress. HEENT: Normocephalic, atraumatic. CHEST/LUNGS: CTAB on room air HEART/CARDIOVASCULAR: RRR. No murmur, rubs or gallops appreciated. ABDOMEN: +BS. NT/ND. NEURO: No focal motor deficit. Follows all commands. MUSCULOSKELETAL: No joint effusion. Right hip TTP. EXTREMITIES: No cyanosis, clubbing or edema. PSYCH: Cooperative. - Constitutional Vitals: Temp Pulse Resp BP Pulse Ox 99.0 F 102 H 18 113/74 100 08/25/21 04:19 08/25/21 04:19 08/25/21 04:19 08/25/21 04:19 08/25/21 04:19 General appearance: Present: mild distress HEART Score - HEART Score Troponin: Troponin T < 0.010 ng/mL (0.00-0.029) 08/22/21 13:31 Results - Labs CBC & Chem 7: 08/24/21 05:11 08/23/21 05:45 Labs: Laboratory Last Values WBC 9.9 K/mm3 (4.5-11.0) 08/24/21 05:11 RBC 2.66 M/mm3 (3.65-5.03) L 08/24/21 05:11 Hgb 7.6 gm/dl (10.1-14.3) L 08/24/21 05:11 Hct 23.5 % (30.3-42.9) L 08/24/21 05:11 MCV 88 fl (79-97) 08/24/21 05:11 MCH 29 pg (28-32) 08/24/21 05:11 MCHC 32 % (30-34) 08/24/21 05:11 RDW 16.0 % (13.2-15.2) H 08/24/21 05:11 Plt Count 404 K/mm3 (140-440) 08/24/21 05:11 Lymph % (Auto) 16.6 % (13.4-35.0) 08/23/21 04:00 [place] % (Auto) 8.8 % (0.0-7.3) H 08/23/21 04:00 Eos % (Auto) 0.1 % (0.0-4.3) 08/23/21 04:00 Baso % (Auto) 0.2 % (0.0-1.8) 08/23/21 04:00 Lymph # (Auto) 1.0 K/mm3 (1.2-5.4) L 08/23/21 04:00 [place] # (Auto) 0.5 K/mm3 (0.0-0.8) 08/23/21 04:00 Eos # (Auto) 0.0 K/mm3 (0.0-0.4) 08/23/21 04:00 Baso # (Auto) 0.0 K/mm3 (0.0-0.1) 08/23/21 04:00 Seg Neutrophils % 74.3 % (40.0-70.0) H 08/23/21 04:00 Seg Neutrophils # 4.3 K/mm3 (1.8-7.7) 08/23/21 04:00 Sodium 138 mmol/L (137-145) 08/23/21 05:45 Potassium 3.5 mmol/L (3.6-5.0) L 08/23/21 05:45 Chloride 100.1 mmol/L (98-107) 08/23/21 05:45 Carbon Dioxide 29 mmol/L (22-30) 08/23/21 05:45 Anion Gap 12 mmol/L 08/23/21 05:45 BUN 12 mg/dL (7-17) 08/23/21 05:45 Creatinine 0.7 mg/dL (0.6-1.2) 08/23/21 05:45 Estimated GFR > 60 ml/min 08/23/21 05:45 BUN/Creatinine Ratio 17 % 08/23/21 05:45 Glucose 91 mg/dL (65-100) 08/23/21 05:45 POC Glucose 82 mg/dL (70-105) 08/22/21 22:10 Calcium 8.3 mg/dL (8.4-10.2) L 08/23/21 05:45 Total Bilirubin 0.20 mg/dL (0.1-1.2) 08/22/21 13:31 AST 18 units/L (5-40) 08/22/21 13:31 ALT 12 units/L (7-56) 08/22/21 13:31 Alkaline Phosphatase 67 units/L (35-129) 08/22/21 13:31 Troponin T < 0.010 ng/mL (0.00-0.029) 08/22/21 13:31 NT-Pro-B Natriuret Pep 300.2 pg/mL (0-900) 08/22/21 13:31 Total Protein 6.5 g/dL (6.3-8.2) 08/22/21 13:31 Albumin 3.7 g/dL (3.9-5) L 08/22/21 13:31 Albumin/Globulin Ratio 1.3 % 08/22/21 13:31 Urine Color Straw (Yellow) 08/22/21 15:51 Urine Turbidity Clear (Clear) 08/22/21 15:51 Urine pH 7.5 (5.0-7.0) H 08/22/21 15:51 Ur Specific [place] 1.010 (1.003-1.030) 08/22/21 15:51 Urine Protein 30 mg/dl mg/dL (Negative) 08/22/21 15:51 Urine Glucose (UA) Negative mg/dL (Negative) 08/22/21 15:51 Urine Ketones 80 mg/dL (Negative) 08/22/21 15:51 Urine Blood Negative (Negative) 08/22/21 15:51 Urine Nitrite Negative (Negative) 08/22/21 15:51 Ur Reducing Substances Not Reportable 08/22/21 15:51 Urine Bilirubin Negative (Negative) 08/22/21 15:51 Urine Ictotest Not Reportable 08/22/21 15:51 Urine Urobilinogen < 2.0 mg/dL (<2.0) 08/22/21 15:51 Ur Leukocyte Esterase Negative (Negative) 08/22/21 15:51 Urine WBC (Auto) 4.0 /HPF (0.0-6.0) 08/22/21 15:51 Urine RBC (Auto) 2.0 /HPF (0.0-6.0) 08/22/21 15:51 Urine Bacteria (Auto) 1+ /HPF (Negative) 08/22/21 15:51 Amorphous Crystals 3+ 08/22/21 15:51 Urine Mucus Few /HPF 08/22/21 15:51 Urine Opiates Screen Negative 08/22/21 15:51 Urine Methadone Screen Negative 08/22/21 15:51 Ur Barbiturates Screen Negative 08/22/21 15:51 Ur Phencyclidine Scrn Negative 08/22/21 15:51 Ur Amphetamines Screen Negative 08/22/21 15:51 U Benzodiazepines Scrn Negative 08/22/21 15:51 Urine Cocaine Screen Negative 08/22/21 15:51 U Marijuana (THC) Screen Positive 08/22/21 15:51 Drugs of Abuse Note Disclamer 08/22/21 15:51 Blood Type B POSITIVE 08/23/21 08:18 Antibody Screen Negative 08/23/21 08:18 Crossmatch See Detail 08/23/21 08:18 Dior/IV: Voiding Method Toilet Active Medications - Current Medications Current Medications: Generic Name Dose Route Start Last Admin Trade Name Freq PRN Reason Stop Dose Admin Acetaminophen 650 mg 08/22/21 17:58 Acetaminophen 325 Mg Tab PO Q4H PRN Pain MILD(1-3)/Fever >100.5/CENTENO Albuterol 2.5 mg 08/22/21 17:58 Albuterol 2.5 Mg/3 Ml Nebu IH Q4HRT PRN Shortness Of Breath Heparin Sodium (Porcine) 5,000 unit 08/24/21 13:00 08/24/21 22:17 Heparin 5,000 Unit/1 Ml Vial SUB-Q 5,000 unit Q12HR FABIAN Administration Hydromorphone HCl 0.5 mg 08/22/21 17:58 08/25/21 06:06 Hydromorphone 0.5 Mg/0.5 Ml Inj IV 0.5 mg Q3H PRN Administration Pain , Severe (7-10) Levetiracetam 1,000 mg 08/24/21 22:00 08/24/21 22:18 Levetiracetam 500 Mg Tab PO 1,000 mg BID FABIAN Administration Ondansetron HCl 4 mg 08/22/21 17:58 Ondansetron 4 Mg/2 Ml Inj IV Q8H PRN Nausea And Vomiting Oxycodone/Acetaminophen 1 tab 08/22/21 17:58 08/23/21 11:39 Oxycodone /Acetaminophen 5-325mg Tab PO 1 tab Q6H PRN Administration Pain, Moderate (4-6) Sodium Chloride 10 ml 08/22/21 22:00 08/24/21 22:22 Sodium Chloride 0.9% 10 Ml Flush Syringe IV 10 ml BID FABIAN Administration Sodium Chloride 10 ml 08/22/21 17:58 08/22/21 18:57 Sodium Chloride 0.9% 10 Ml Flush Syringe IV 10 ml PRN PRN Administration LINE FLUSH
[2021-08-25] MEDS: levETIRAcetam 500 MG TAB PO SCH ×2 (09:00→22:02)
[2021-08-25] MEDS: HEPARIN 5,000 UNIT/1 ML VIAL SUB-Q SCH ×2 (09:00→22:02)
[2021-08-26] MEDS ORDERED: fentaNYL 100 MCG/2 ML INJ ONE (07:38)
[2021-08-26] MEDS ORDERED: propofoL 200 MG/20 ML VIAL IV ONE (07:38)
[2021-08-26] MEDS ORDERED: LIDOCAINE MPF (2%) 20 MG/1 ML VIAL 5 ML ONE (07:38)
[2021-08-26] MEDS ORDERED: ONDANSETRON 4 MG/2 ML INJ ONE (07:38)
--- NOTE | 2021-08-26 09:15 | Event Note ---
Date: 08/26/21 Informed this morning that patient refuses to go down to surgery, in spite of the fact the she signed the operative consent form yesterday and withness by me personally asked patient's nurse to signed but apparently she refused to do so...Asked about next of kin so we can go ahead and perform this necessary surgery. Recommend Psychiatry consult for competence...
[2021-08-26] MEDS: HEPARIN 5,000 UNIT/1 ML VIAL SUB-Q SCH ×3 (09:18→22:22)
[2021-08-26] MEDS: levETIRAcetam 500 MG TAB PO SCH ×2 (09:18→22:18)
--- NOTE | 2021-08-26 11:10 | Progress Note ---
Assessment and Plan Assessment and plan: #Intertrochanteric fracture of right femur -Fracture seen on x-ray of hip -Supportive care, as needed pain medications -Orthopedic surgery team consulted, plan for IM nail fixation today -Patient refused surgery after signing consent yesterday, psych eval pending #Normocytic asymptomatic anemia-improved -s/p 1 packed red blood cells -will transfuse for hemoglobin less than 7 #Hypertension -Patient reports taking medication at home, unable to recall at this time -We will restart home blood pressure medication once reconciliation complete -Blood pressure controlled currently, will continue to monitor #Hypokalemia -will replete and monitor #Nicotine dependence #Tobacco cessation counseling -smoking cessation counseling, behavior change counseling, supportive care, +15 minutes. #Advanced care planning -Disease education conducted, care plan discussed, diagnoses discussed, prognosis discussed, patient is full code, patient acknowledges understanding and agreement with care plan, +30 minutes. History Interval history: No acute events overnight. Patient stable at this time. Patient has refused vital signs and medications. Does not want surgery and wants to leave. Patient counseled regarding importance of surgical repair of hip and that she would have to leave AMA if she wanted to go to [facility] for further care. Patient granddaughter at bedside discussed options with patient. Orthopedic surgery als o saw patient. Psychiatry consulted to evaluate competence. Hospitalist Physical - Physical exam Narrative exam: GENERAL: Thin woman. In no acute distress. CHEST/LUNGS: CTAB on room air HEART/CARDIOVASCULAR: RRR. No murmur, rubs or gallops appreciated. ABDOMEN: +BS. NT/ND. NEURO: No focal motor deficit. Follows all commands. MUSCULOSKELETAL: No joint effusion. Right hip TTP. EXTREMITIES: No cyanosis, clubbing or edema. PSYCH: Cooperative. - Constitutional Vitals: Temp Pulse Resp BP Pulse Ox 97.7 F 114 H 18 131/82 100 08/25/21 12:24 08/25/21 12:24 08/25/21 12:24 08/25/21 12:24 08/26/21 09:06 General appearance: Present: mild distress HEART Score - HEART Score Troponin: Troponin T < 0.010 ng/mL (0.00-0.029) 08/22/21 13:31 Results - Labs CBC & Chem 7: 08/24/21 05:11 08/23/21 05:45 Labs: Laboratory Last Values WBC 9.9 K/mm3 (4.5-11.0) 08/24/21 05:11 RBC 2.66 M/mm3 (3.65-5.03) L 08/24/21 05:11 Hgb 7.6 gm/dl (10.1-14.3) L 08/24/21 05:11 Hct 23.5 % (30.3-42.9) L 08/24/21 05:11 MCV 88 fl (79-97) 08/24/21 05:11 MCH 29 pg (28-32) 08/24/21 05:11 MCHC 32 % (30-34) 08/24/21 05:11 RDW 16.0 % (13.2-15.2) H 08/24/21 05:11 Plt Count 404 K/mm3 (140-440) 08/24/21 05:11 Lymph % (Auto) 16.6 % (13.4-35.0) 08/23/21 04:00 [place] % (Auto) 8.8 % (0.0-7.3) H 08/23/21 04:00 Eos % (Auto) 0.1 % (0.0-4.3) 08/23/21 04:00 Baso % (Auto) 0.2 % (0.0-1.8) 08/23/21 04:00 Lymph # (Auto) 1.0 K/mm3 (1.2-5.4) L 08/23/21 04:00 [place] # (Auto) 0.5 K/mm3 (0.0-0.8) 08/23/21 04:00 Eos # (Auto) 0.0 K/mm3 (0.0-0.4) 08/23/21 04:00 Baso # (Auto) 0.0 K/mm3 (0.0-0.1) 08/23/21 04:00 Seg Neutrophils % 74.3 % (40.0-70.0) H 08/23/21 04:00 Seg Neutrophils # 4.3 K/mm3 (1.8-7.7) 08/23/21 04:00 Sodium 138 mmol/L (137-145) 08/23/21 05:45 Potassium 3.5 mmol/L (3.6-5.0) L 08/23/21 05:45 Chloride 100.1 mmol/L (98-107) 08/23/21 05:45 Carbon Dioxide 29 mmol/L (22-30) 08/23/21 05:45 Anion Gap 12 mmol/L 08/23/21 05:45 BUN 12 mg/dL (7-17) 08/23/21 05:45 Creatinine 0.7 mg/dL (0.6-1.2) 08/23/21 05:45 Estimated GFR > 60 ml/min 08/23/21 05:45 BUN/Creatinine Ratio 17 % 08/23/21 05:45 Glucose 91 mg/dL (65-100) 08/23/21 05:45 POC Glucose 82 mg/dL (70-105) 08/22/21 22:10 Calcium 8.3 mg/dL (8.4-10.2) L 08/23/21 05:45 Total Bilirubin 0.20 mg/dL (0.1-1.2) 08/22/21 13:31 AST 18 units/L (5-40) 08/22/21 13:31 ALT 12 units/L (7-56) 08/22/21 13:31 Alkaline Phosphatase 67 units/L (35-129) 08/22/21 13:31 Troponin T < 0.010 ng/mL (0.00-0.029) 08/22/21 13:31 NT-Pro-B Natriuret Pep 300.2 pg/mL (0-900) 08/22/21 13:31 Total Protein 6.5 g/dL (6.3-8.2) 08/22/21 13:31 Albumin 3.7 g/dL (3.9-5) L 08/22/21 13:31 Albumin/Globulin Ratio 1.3 % 08/22/21 13:31 Urine Color Straw (Yellow) 08/22/21 15:51 Urine Turbidity Clear (Clear) 08/22/21 15:51 Urine pH 7.5 (5.0-7.0) H 08/22/21 15:51 Ur Specific [place] 1.010 (1.003-1.030) 08/22/21 15:51 Urine Protein 30 mg/dl mg/dL (Negative) 08/22/21 15:51 Urine Glucose (UA) Negative mg/dL (Negative) 08/22/21 15:51 Urine Ketones 80 mg/dL (Negative) 08/22/21 15:51 Urine Blood Negative (Negative) 08/22/21 15:51 Urine Nitrite Negative (Negative) 08/22/21 15:51 Ur Reducing Substances Not Reportable 08/22/21 15:51 Urine Bilirubin Negative (Negative) 08/22/21 15:51 Urine Ictotest Not Reportable 08/22/21 15:51 Urine Urobilinogen < 2.0 mg/dL (<2.0) 08/22/21 15:51 Ur Leukocyte Esterase Negative (Negative) 08/22/21 15:51 Urine WBC (Auto) 4.0 /HPF (0.0-6.0) 08/22/21 15:51 Urine RBC (Auto) 2.0 /HPF (0.0-6.0) 08/22/21 15:51 Urine Bacteria (Auto) 1+ /HPF (Negative) 08/22/21 15:51 Amorphous Crystals 3+ 08/22/21 15:51 Urine Mucus Few /HPF 08/22/21 15:51 Urine Opiates Screen Negative 08/22/21 15:51 Urine Methadone Screen Negative 08/22/21 15:51 Ur Barbiturates Screen Negative 08/22/21 15:51 Ur Phencyclidine Scrn Negative 08/22/21 15:51 Ur Amphetamines Screen Negative 08/22/21 15:51 U Benzodiazepines Scrn Negative 08/22/21 15:51 Urine Cocaine Screen Negative 08/22/21 15:51 U Marijuana (THC) Screen Positive 08/22/21 15:51 Drugs of Abuse Note Disclamer 08/22/21 15:51 Blood Type B POSITIVE 08/23/21 08:18 Antibody Screen Negative 08/23/21 08:18 Crossmatch See Detail 08/23/21 08:18 Dior/IV: Voiding Method Bedpan Active Medications - Current Medications Current Medications: Generic Name Dose Route Start Last Admin Trade Name Freq PRN Reason Stop Dose Admin Acetaminophen 650 mg 08/22/21 17:58 Acetaminophen 325 Mg Tab PO Q4H PRN Pain MILD(1-3)/Fever >100.5/CENTENO Albuterol 2.5 mg 08/22/21 17:58 Albuterol 2.5 Mg/3 Ml Nebu IH Q4HRT PRN Shortness Of Breath Heparin Sodium (Porcine) 5,000 unit 08/24/21 13:00 08/26/21 09:18 Heparin 5,000 Unit/1 Ml Vial SUB-Q Not Given Q12HR FABIAN Hydromorphone HCl 0.5 mg 08/22/21 17:58 08/25/21 08:52 Hydromorphone 0.5 Mg/0.5 Ml Inj IV 0.5 mg Q3H PRN Administration Pain , Severe (7-10) Levetiracetam 1,000 mg 08/24/21 22:00 08/26/21 09:18 Levetiracetam 500 Mg Tab PO Not Given BID FABIAN Ondansetron HCl 4 mg 08/22/21 17:58 Ondansetron 4 Mg/2 Ml Inj IV Q8H PRN Nausea And Vomiting Oxycodone/Acetaminophen 1 tab 08/22/21 17:58 08/23/21 11:39 Oxycodone /Acetaminophen 5-325mg Tab PO 1 tab Q6H PRN Administration Pain, Moderate (4-6) Sodium Chloride 10 ml 08/22/21 22:00 08/26/21 09:18 Sodium Chloride 0.9% 10 Ml Flush Syringe IV Not Given BID FABIAN Sodium Chloride 10 ml 08/22/21 17:58 08/22/21 18:57 Sodium Chloride 0.9% 10 Ml Flush Syringe IV 10 ml PRN PRN Administration LINE FLUSH
[2021-08-26] MEDS: oxyCODONE /ACETAMINOPHEN 5-325MG TAB PO PRN (20:30)
[2021-08-27 06:58] LABS: Hematocrit 23.2 % (30.3-42.9); Hemoglobin 7.2 gm/dl (10.1-14.3); Mean Corpuscular HGB Conc 31 % (30-34); Mean Corpuscular Volume 88 fl (79-97); Platelet Count 451 K/mm3 (140-440); Red Blood Count 2.62 M/mm3 (3.65-5.03); Red Cell Distribution Width 15.6 % (13.2-15.2)
[2021-08-27 07:12] LABS: Blood Urea Nitrogen 12 mg/dL (7-17); Calcium 8.8 mg/dL (8.4-10.2); Hemolysis Index 1
[2021-08-27 07:19] LABS: BUN/Creatinine Ratio 24
[2021-08-27] MEDS: HYDROmorphone 0.5 MG/0.5 ML INJ IV PRN ×2 (07:53→18:29)
[2021-08-27] MEDS ORDERED: POTASSIUM CHLORIDE ER 20 MEQ TAB PO NR (08:30)
[2021-08-27] MEDS: levETIRAcetam 500 MG TAB PO SCH ×2 (09:00→21:02)
[2021-08-27] MEDS: HEPARIN 5,000 UNIT/1 ML VIAL SUB-Q SCH ×2 (09:56→21:01)
[2021-08-27] MEDS ORDERED: SUCCINYLCHOLINE CHLORIDE 200 MG/10 ML INJ MDV ONE (11:19)
[2021-08-27] MEDS ORDERED: propofoL 200 MG/20 ML VIAL IV ONE ×2 (11:19→13:43)
[2021-08-27] MEDS ORDERED: LIDOCAINE PF 100 MG/5 ML (CARDIAC SYRINGE) IV ONE ×2 (11:19→13:42)
[2021-08-27] MEDS ORDERED: ROCURONIUM 50 MG/5 ML INJ IV ONE (11:19)
--- NOTE | 2021-08-27 11:40 | Consultation ---
History of Present Illness - Reason for Consult Consult date: 08/27/21 Reason for consult: Mental health evaluation - Chief Complaint Chief complaint: I fell and hurt my leg - History of Present Psychiatric Illness HPI: 71 YO Female with HTN, Seizure Disorder, Nicotine Dependence presents ED for evaluation. Patient reports "I got dizzy and I fell down and hurt my leg". Patient states that she was in her usual state of health while walking to the bus stop and experienced a sudden onset of dizziness. Patient states that she subsequently lost her balance and fell landing on her right hip. Patient states that she felt immediate pain to her right hip. Patient is sharp in nature, 10 out of 10, worsened with movement, relieved somewhat with nonmovement. Patient was unable to stand and bear weight on her right leg. EMS was notified and upon arrival the patient was found to be in distress and subsequent transported to [facility] for further care and evaluation of the aforementioned symptoms. The patient was seen and evaluated in the emergency department. All lab and imaging studies reviewed. Patient found to have a right intertrochanteric femur fracture. Orthopedic surgery team consulted in ED. Patient denies fever, chills, chest pain, palpitation, productive cough, skin rash and recent contact, known exposure to COVID-19. No prior admission for review. No medication listed at time of admission for reconciliation. Advanced care planning conducted in ED. The patient is a 71 year old female with no psychiatric history. The patient was seen today. She present with constricted affect. She is calm, alert and oriented x3. The patient states that she was initially overwhelmed when she spoke with the doctor stating she has had time to think and states she is receptive to having the hip surgery. The patient denies being depressed or feeling excessively anxious. She denies any current suicidal/homicidal ideation and denies hallucinations. PAST PSYCHIATRIC HISTORY: Diagnoses: Denies Suicide attempts or Self-harm behavior: Denies Prior psychiatric hospitalizations:Denies Substance Abuse history: marijuana Previous psychiatric medications tried: Denies Outpatient treatment: Unknown PAST MEDICAL HISTORY: None reported or document Family Psychiatric History: None reported or documented SOCIAL HISTORY Marital Status: Living Arrangements: Lives with God daughter Employment Status:Retired Access to guns/weapons: Denies Education:10th grade History of Abuse:Denies Legal History: Unknown REVIEW OF SYSTEMS Constitutional: Negative for weight loss ENT: Negative for stridor Respiratory: Negative for cough or hemoptysis All other systems reviewed and are negative MENTAL STATUS EXAMINATION General Appearance and Behavior: Age appropriate, wearing appropriate clothes, cooperative, polite with questioning, good eye contact Cooperation: cooperative Psychomotor Behavior: Psychomotor normal Mood: calm Affect and affective range: congruent with stated mood Thought Process: goal directed Thought Content: reality oriented Speech: Normal Suicidal Ideation: Denies Homicidal Ideation: Denies Hallucination: Denies Delusions: None elicited Impulse Control: Limited Insight and Judgment: Limited Memory: limited Attention:attentive Orientation: Alert and oriented x3 Diagnoses: Mental health evaluation Treatment Plan Continue home meds Medical: per primary Sitter: defer to primary Disposition: Do not recommend acute psychiatric inpatient treatment. Will sign off. Thanks Case staffed with Dr. Ovalles Medications and Allergies Medications and Allergies Allergies Allergy/AdvReac Type Severity Reaction Status Date / Time No Known Allergies Allergy Verified 08/22/21 11:18 Home Medications Medication Instructions Recorded Confirmed Last Taken Type Norvasc 10 mg PO DAILY 08/24/21 08/24/21 08/21/21 10:00 History levETIRAcetam 1,000 mg PO BID 08/24/21 08/24/21 08/22/21 10:00 History Active Meds: Active Medications Acetaminophen (Acetaminophen 325 Mg Tab) 650 mg PO Q4H PRN PRN Reason: Pain MILD(1-3)/Fever >100.5/[place]ENT[place] Albuterol (Albuterol 2.5 Mg/3 Ml Nebu) 2.5 mg IH Q4HRT PRN PRN Reason: Shortness Of Breath Heparin Sodium (Porcine) (Heparin 5,000 Unit/1 Ml Vial) 5,000 unit SUB-Q Q12HR [facility] Last Admin: 08/27/21 09:56 Dose: Not Given Hydromorphone HCl (Hydromorphone 0.5 Mg/0.5 Ml Inj) 0.5 mg IV Q3H PRN PRN Reason: Pain , Severe (7-10) Last Admin: 08/27/21 07:53 Dose: 0.5 mg Levetiracetam (Levetiracetam 500 Mg Tab) 1,000 mg PO BID [facility] Last Admin: 08/27/21 09:00 Dose: 1,000 mg Ondansetron HCl (Ondansetron 4 Mg/2 Ml Inj) 4 mg IV Q8H PRN PRN Reason: Nausea And Vomiting Oxycodone/Acetaminophen (Oxycodone /Acetaminophen 5-325mg Tab) 1 tab PO Q6H PRN PRN Reason: Pain, Moderate (4-6) Last Admin: 08/26/21 20:30 Dose: 1 tab Potassium Chloride (Potassium Chloride Er 20 Meq Tab) 40 meq PO ONCE@0830 NR Stop: 08/27/21 12:00 Last Admin: 08/27/21 08:54 Dose: 40 meq Sodium Chloride (Sodium Chloride 0.9% 10 Ml Flush Syringe) 10 ml IV BID FABIAN Last Admin: 08/27/21 09:56 Dose: 10 ml Sodium Chloride (Sodium Chloride 0.9% 10 Ml Flush Syringe) 10 ml IV PRN PRN PRN Reason: LINE FLUSH Last Admin: 08/22/21 18:57 Dose: 10 ml Mental Status Exam - Vital signs Last Vital Signs Temp 98.1 F 08/27/21 03:40 Pulse 100 H 08/27/21 03:40 Resp 16 08/27/21 03:40 BP 108/63 08/27/21 03:40 Pulse Ox 96 08/27/21 06:00 Results Result Diagrams: 08/27/21 06:05 08/27/21 06:05 Abnormal lab results 08/27/21 08/27/21 Range/Units 06:05 06:05 RBC 2.62 L (3.65-5.03) M/mm3 Hgb 7.2 L (10.1-14.3) gm/dl Hct 23.2 L (30.3-42.9) % RDW 15.6 H (13.2-15.2) % Plt Count 451 H (140-440) K/mm3 Potassium 3.2 L (3.6-5.0) mmol/L Carbon Dioxide 32 H (22-30) mmol/L Creatinine 0.5 L (0.6-1.2) mg/dL All other labs normal.
[2021-08-27] MEDS ORDERED: LACTATED RINGERS 1,000 ML ONE (13:01)
[2021-08-27] MEDS ORDERED: ONDANSETRON 4 MG/2 ML INJ IV PRN (13:07)
[2021-08-27] MEDS ORDERED: HYDROmorphone 0.5 MG/0.5 ML INJ IV PRN ×2 (13:07)
[2021-08-27] MEDS ORDERED: SODIUM CHLORIDE 0.9% 0 ML ONE (13:08)
--- NOTE | 2021-08-27 13:08 | Anesthesia Day of Surgery ---
Anesthesia Day of Surgery - Day of Surgery Patient Examined: Yes Patient H&P Reviewed: Yes Patient is NPO: Yes
[2021-08-27] MEDS ORDERED: SODIUM CHLORIDE 0.9% 100 ML ONE (13:09)
[2021-08-27] MEDS ORDERED: KETOROLAC 30 MG/1 ML INJ ONE ×2 (13:09→15:02)
[2021-08-27] MEDS ORDERED: BUPIVACAINE/PF (0.5%) 5 MG/1 ML 10 ML VIAL INFILTRATI ONE ×2 (13:09→14:35)
[2021-08-27] MEDS: LACTATED RINGERS 1,000 ML IV SCH ×2 (13:10→18:07)
--- NOTE | 2021-08-27 13:10 | Anesthesia Consultation ---
Anesthesia Consult and Med Hx Date of service: 08/27/21 - Airway Anesthetic Teeth Evaluation: Dentures, Edentulous ROM Head & Neck: Adequate Mental/Hyoid Distance: Adequate Mallampati Class: Class II Intubation Access Assessment: Good - Pre-Operative Health Status ASA Pre-Surgery Classification: ASA3 Proposed Anesthetic Plan: General - Pulmonary Hx Smoking: Yes - Cardiovascular System Hx Hypertension: Yes - Central Nervous System Hx Seizures: Yes - Hematic Hx Anemia: Yes (7.2/23.2) Hx Sickle Cell Disease: No - Other Systems Hx Substance Use: Yes (MJ) Hx Obesity: No
[2021-08-27] MEDS ORDERED: MORPHINE 10 MG/1 ML INJ ONE (13:25)
[2021-08-27] MEDS ORDERED: ceFAZolin/Water 2 GM/20 ML 2 GM/20 ML SYRINGE IV ONE (13:38)
[2021-08-27] MEDS ORDERED: fentaNYL 100 MCG/2 ML INJ ONE (13:43)
[2021-08-27] MEDS ORDERED: ceFAZolin/STERILE WATER 2 GM/20 ML SYRINGE IV NR (14:00)
[2021-08-27] MEDS ORDERED: KETOROLAC 30 MG/1 ML INJ IM ONE (14:35)
[2021-08-27] MEDS ORDERED: MORPHINE 10 MG/1 ML INJ IM ONE (14:36)
[2021-08-27] MEDS ORDERED: SODIUM CHLORIDE 0.9% 100 ML IVPB IV ONE (14:36)
[2021-08-27] MEDS ORDERED: SODIUM CHLORIDE 0.9% IRR 1,500 ML BOTTLE IR ONE (14:37)
[2021-08-27] MEDS ORDERED: ACETAMINOPHEN 325 MG TAB PO PRN (15:14)
[2021-08-27] MEDS ORDERED: MORPHINE 4 MG/1 ML INJ IV PRN (15:14)
[2021-08-27] MEDS ORDERED: MORPHINE 2 MG/1 ML INJ IV PRN (15:14)
--- NOTE | 2021-08-27 15:22 | Procedure Note ---
Date of procedure: 08/27/21 Pre-op diagnosis: Right intertrochanter fracture hip Post-op diagnosis: same Procedure: Closed reduction insertion of intramedullary nail right femur Procedure The patient was brought to the OR on the hospital bed SHe was given genera anesthesia following this the patient was then transferred onto the [place] table supine the legs were placed in longitudinal traction The C-arm fluoroscope was brought in and the hip was reduced in both the AP and lateral planes. Next the right hip was prepped and draped in the usual sterile manner a stab wound was made posterior and superior to the greater trochanter this is carried down sharply through skin and fascia using a [place] elevator the soft tissues were split down to the tip of the greater trochanter A large awl was used to enter the proximal medullary canal this was followed by placement of the guidewire again under C-arm visualization the tip of the guidewire was seen in the distal femur next the measurements were obtained a 11 x 420 intramedullary nail was selected this was followed by reaming up to a 12-1/2 mm diameter following this the intramedullary nail was inserted and a antegrade fashion down the proximal canal into the distal femur next the targeting device for the gamma blade was placed and the stab wound was made along the lateral border of the thigh again under C-arm visualization a guidewire was inserted into the femoral neck again measuring this delay a 105 mm gamma blade was chosen the forearm or near cortex was drilled followed by insertion of the proximal gamma blade next the locking screw proximally was engaged again under C-arm direction AP and lateral views were obtained showing good reduction at the fracture and placement of the hardware following this a wound was copiously irrigated and was closed in a standard routine fashion and the patient tolerated the procedure there were no complications and he was sent to postanesthesia recovery in stable condition Anesthesia: GETA Surgeon: NEW HOLT Estimated blood loss: 50-100ml Pathology: none Condition: stable Disposition: PACU
--- NOTE | 2021-08-27 15:43 | Post Anesthesia Evaluation ---
- Post Anesthesia Evaluation Patient Participated: Yes Airway Patent: Yes Stable Respiratory Function: Yes Nausea/Vomiting: No Temp > 96.8F: Yes Pain Manageable: Yes Adequeate Hydration: Yes Anesthesia Complications: No Block Receding Appropriately: Not Applicable Patient on Ventilator: No
--- NOTE | 2021-08-27 17:35 | Progress Note ---
Assessment and Plan Assessment and plan: #Intertrochanteric fracture of right femur status post repair -Fracture seen on x-ray of hip -Supportive care, as needed pain medications -Orthopedic surgery consulted; appreciate recs. Status post intertrochanteric repair on 08/27/2021. -Physical therapy consulted; pending recs Starting apixaban 2.5 mg twice daily x35 days tomorrow (08/28/2021). #Normocytic asymptomatic anemia-improved -s/p 1 packed red blood cells -will transfuse for hemoglobin less than 7 #Hypertension -Patient reports taking medication at home, unable to recall at this time -We will restart home blood pressure medication once reconciliation complete -Blood pressure controlled currently, will continue to monitor #Hypokalemia -Potassium 3.2 -Repleted. Continue to monitor. #Nicotine dependence #Tobacco cessation counseling -smoking cessation counseling, behavior change counseling, supportive care, +15 minutes. #Advanced care planning -Disease education conducted, care plan discussed, diagnoses discussed, prognosis discussed, patient is full code, patient acknowledges understanding and agreement with care plan, +30 minutes. #Discharge planning - Patient is pending physical therapy evaluation - Case management has been made aware. - Discharge is tentatively 2-3 days Disposition Plan: Continue medical management Total Time Spent with Patient (Minutes): 45 minutes History Interval history: No acute events overnight. Hospitalist Physical - Constitutional Vitals: Temp Pulse Resp BP Pulse Ox 97.0 F L 82 13 122/76 100 08/27/21 15:28 08/27/21 16:15 08/27/21 16:15 08/27/21 16:15 08/27/21 16:15 General appearance: Present: mild distress, well-nourished - EENT Eyes: Present: PERRL, EOM intact ENT: hearing intact, clear oral mucosa, dentition normal - Neck Neck: Present: supple, normal ROM - Respiratory Respiratory effort: normal Respiratory: bilateral: CTA - Cardiovascular Rhythm: regular Heart Sounds: Present: S1 & S2 - Extremities Extremities: no ischemia, pulses intact, pulses symmetrical, No edema, normal temperature, normal color Extremity abnormal: tenderness (Significant tenderness of right hip) Peripheral Pulses: within normal limits - Abdominal General gastrointestinal: soft, non-tender, non-distended, normal bowel sounds - Integumentary Integumentary: Present: clear, warm, dry - Psychiatric Psychiatric: appropriate mood/affect, intact judgment & insight, memory intact, cooperative - Neurologic Neurologic: CNII-XII intact - Allied Health Allied health notes reviewed: nursing HEART Score - HEART Score Troponin: Troponin T < 0.010 ng/mL (0.00-0.029) 08/22/21 13:31 Results - Labs CBC & Chem 7: 08/27/21 06:05 08/27/21 06:05 Labs: Laboratory Last Values WBC 7.0 K/mm3 (4.5-11.0) 08/27/21 06:05 RBC 2.62 M/mm3 (3.65-5.03) L 08/27/21 06:05 Hgb 7.2 gm/dl (10.1-14.3) L 08/27/21 06:05 Hct 23.2 % (30.3-42.9) L 08/27/21 06:05 MCV 88 fl (79-97) 08/27/21 06:05 MCH 28 pg (28-32) 08/27/21 06:05 MCHC 31 % (30-34) 08/27/21 06:05 RDW 15.6 % (13.2-15.2) H 08/27/21 06:05 Plt Count 451 K/mm3 (140-440) H 08/27/21 06:05 Lymph % (Auto) 16.6 % (13.4-35.0) 08/23/21 04:00 [place] % (Auto) 8.8 % (0.0-7.3) H 08/23/21 04:00 Eos % (Auto) 0.1 % (0.0-4.3) 08/23/21 04:00 Baso % (Auto) 0.2 % (0.0-1.8) 08/23/21 04:00 Lymph # (Auto) 1.0 K/mm3 (1.2-5.4) L 08/23/21 04:00 [place] # (Auto) 0.5 K/mm3 (0.0-0.8) 08/23/21 04:00 Eos # (Auto) 0.0 K/mm3 (0.0-0.4) 08/23/21 04:00 Baso # (Auto) 0.0 K/mm3 (0.0-0.1) 08/23/21 04:00 Seg Neutrophils % 74.3 % (40.0-70.0) H 08/23/21 04:00 Seg Neutrophils # 4.3 K/mm3 (1.8-7.7) 08/23/21 04:00 Sodium 142 mmol/L (137-145) 08/27/21 06:05 Potassium 3.2 mmol/L (3.6-5.0) L 08/27/21 06:05 Chloride 100.8 mmol/L (98-107) 08/27/21 06:05 Carbon Dioxide 32 mmol/L (22-30) H 08/27/21 06:05 Anion Gap 12 mmol/L 08/27/21 06:05 BUN 12 mg/dL (7-17) 08/27/21 06:05 Creatinine 0.5 mg/dL (0.6-1.2) L 08/27/21 06:05 Estimated GFR > 60 ml/min 08/27/21 06:05 BUN/Creatinine Ratio 24 % 08/27/21 06:05 Glucose 99 mg/dL (65-100) 08/27/21 06:05 POC Glucose 82 mg/dL (70-105) 08/22/21 22:10 Calcium 8.8 mg/dL (8.4-10.2) 08/27/21 06:05 Total Bilirubin 0.20 mg/dL (0.1-1.2) 08/22/21 13:31 AST 18 units/L (5-40) 08/22/21 13:31 ALT 12 units/L (7-56) 08/22/21 13:31 Alkaline Phosphatase 67 units/L (35-129) 08/22/21 13:31 Troponin T < 0.010 ng/mL (0.00-0.029) 08/22/21 13:31 NT-Pro-B Natriuret Pep 300.2 pg/mL (0-900) 08/22/21 13:31 Total Protein 6.5 g/dL (6.3-8.2) 08/22/21 13:31 Albumin 3.7 g/dL (3.9-5) L 08/22/21 13:31 Albumin/Globulin Ratio 1.3 % 08/22/21 13:31 Urine Color Straw (Yellow) 08/22/21 15:51 Urine Turbidity Clear (Clear) 08/22/21 15:51 Urine pH 7.5 (5.0-7.0) H 08/22/21 15:51 Ur Specific [place] 1.010 (1.003-1.030) 08/22/21 15:51 Urine Protein 30 mg/dl mg/dL (Negative) 08/22/21 15:51 Urine Glucose (UA) Negative mg/dL (Negative) 08/22/21 15:51 Urine Ketones 80 mg/dL (Negative) 08/22/21 15:51 Urine Blood Negative (Negative) 08/22/21 15:51 Urine Nitrite Negative (Negative) 08/22/21 15:51 Ur Reducing Substances Not Reportable 08/22/21 15:51 Urine Bilirubin Negative (Negative) 08/22/21 15:51 Urine Ictotest Not Reportable 08/22/21 15:51 Urine Urobilinogen < 2.0 mg/dL (<2.0) 08/22/21 15:51 Ur Leukocyte Esterase Negative (Negative) 08/22/21 15:51 Urine WBC (Auto) 4.0 /HPF (0.0-6.0) 08/22/21 15:51 Urine RBC (Auto) 2.0 /HPF (0.0-6.0) 08/22/21 15:51 Urine Bacteria (Auto) 1+ /HPF (Negative) 08/22/21 15:51 Amorphous Crystals 3+ 08/22/21 15:51 Urine Mucus Few /HPF 08/22/21 15:51 Urine Opiates Screen Negative 08/22/21 15:51 Urine Methadone Screen Negative 08/22/21 15:51 Ur Barbiturates Screen Negative 08/22/21 15:51 Ur Phencyclidine Scrn Negative 08/22/21 15:51 Ur Amphetamines Screen Negative 08/22/21 15:51 U Benzodiazepines Scrn Negative 08/22/21 15:51 Urine Cocaine Screen Negative 08/22/21 15:51 U Marijuana (THC) Screen Positive 08/22/21 15:51 Drugs of Abuse Note Disclamer 08/22/21 15:51 Blood Type B POSITIVE 08/27/21 13:10 Antibody Screen Negative 08/27/21 13:10 Crossmatch See Detail 08/23/21 08:18 Dior/IV: Voiding Method Bedpan Active Medications - Current Medications Current Medications: Generic Name Dose Route Start Last Admin Trade Name Freq PRN Reason Stop Dose Admin Acetaminophen 650 mg 08/27/21 15:14 Acetaminophen 325 Mg Tab PO Q4H PRN Pain MILD(1-3)/Fever >100.5/CENTENO Albuterol 2.5 mg 08/22/21 17:58 Albuterol 2.5 Mg/3 Ml Nebu IH Q4HRT PRN Shortness Of Breath Apixaban 2.5 mg 08/28/21 10:00 Apixaban 2.5 Mg Tab PO 10/02/21 09:59 Q12HR [facility] Protocol Cefazolin Sodium 2 gm 08/27/21 14:00 Cefazolin/Sterile Water 2 Gm/20 Ml Syringe IV 08/27/21 23:59 PREOP NR Heparin Sodium (Porcine) 5,000 unit 08/24/21 13:00 08/27/21 09:56 Heparin 5,000 Unit/1 Ml Vial SUB-Q Not Given Q12HR [facility] Hydromorphone HCl 0.5 mg 08/22/21 17:58 08/27/21 07:53 Hydromorphone 0.5 Mg/0.5 Ml Inj IV 0.5 mg Q3H PRN Administration Pain , Severe (7-10) Hydromorphone HCl 0.25 mg 08/27/21 13:07 Hydromorphone 0.5 Mg/0.5 Ml Inj IV Q10MIN PRN Pain, Moderate (4-6) Hydromorphone HCl 0.5 mg 08/27/21 13:07 Hydromorphone 0.5 Mg/0.5 Ml Inj IV Q10MIN PRN Pain , Severe (7-10) Lactated Ringer's 1,000 mls @ 125 mls/hr 08/27/21 13:15 08/27/21 13:10 Lactated Ringers IV 125 mls/hr DIRECT FABIAN Administration Ketorolac Tromethamine 15 mg 08/27/21 15:14 Ketorolac 30 Mg/1 Ml Inj IV 09/01/21 15:13 Q6H PRN Pain, Moderate (4-6) Levetiracetam 1,000 mg 08/24/21 22:00 08/27/21 09:00 Levetiracetam 500 Mg Tab PO 1,000 mg BID FABIAN Administration Morphine Sulfate 2 mg 08/27/21 15:14 Morphine 2 Mg/1 Ml Inj IV Q4H PRN Pain, Moderate (4-6) Morphine Sulfate 4 mg 08/27/21 15:14 Morphine 4 Mg/1 Ml Inj IV Q4H PRN Pain , Severe (7-10) Ondansetron HCl 4 mg 08/22/21 17:58 Ondansetron 4 Mg/2 Ml Inj IV Q8H PRN Nausea And Vomiting Ondansetron HCl 4 mg 08/27/21 13:07 Ondansetron 4 Mg/2 Ml Inj IV ONCE PRN Nausea And Vomiting Oxycodone/Acetaminophen 1 tab 08/22/21 17:58 08/26/21 20:30 Oxycodone /Acetaminophen 5-325mg Tab PO 1 tab Q6H PRN Administration Pain, Moderate (4-6) Sodium Chloride 10 ml 08/22/21 22:00 08/27/21 09:56 Sodium Chloride 0.9% 10 Ml Flush Syringe IV 10 ml BID FABIAN Administration Sodium Chloride 10 ml 08/22/21 17:58 08/22/21 18:57 Sodium Chloride 0.9% 10 Ml Flush Syringe IV 10 ml PRN PRN Administration LINE FLUSH Sodium Chloride 10 ml 08/27/21 16:00 Sodium Chloride 0.9% 10 Ml Flush Syringe IV 09/06/21 23:59 PRN NR Nutrition/Malnutrition Assess - Dietary Evaluation Nutrition/Malnutrition Findings: Nutrition Notes Start: 08/26/21 19:46 Freq: Status: Active Protocol: Document 08/26/21 19:46 RA (Rec: 08/26/21 20:07 RA [id number]) Nutrition Notes Need for Assessment generated from: Low BMI Initial or Follow up Assessment Current Diagnosis Hypertension Other Pertinent Diagnosis R-Intertrochanteric Femur Fracture, Seizure, Anemia, Hypokalemia. Current Diet NPO (since 08/26 11:06). Labs/Tests 08/26: K 3.5, Ca 8.3. Pertinent Medications 08/26: Nutritionally unremarkable. 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 Pt states that her Body Weight is 67.132 Kg, according to Admission Documents. Weight Status Underweight Subjective/Other Information RD consult for Low BMI assessment. Pt currently on NPO. Pt is on Room Air, O2 saturation @ 97%, according to Physical Assessment History notes. Pt states that her Body Weight is 67.132 Kg, according to Admission Documents. Pt's Low BMI seems to correspond to a natural body composition, and not related to a sudden loss of body weight nor chronic malnutrition, since no signs of concern were mentioned in the Physical Assessment History or the Progress notes. Percent of energy/protein needs met: Pt currently on NPO. Burn Absent Trauma Present GI Symptoms None Food Allergy No Skin Integrity/Comment Assessment WNL. 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 Pt's Low BMI seems to correspond to a natural body composition, and not related to a sudden loss of body weight nor chronic malnutrition, since no signs of concern were mentioned in the Physical Assessment History or the Progress notes. Etiology Uncertain. As Evidenced by Signs and Symptoms Low BMI on chart. Is patient on ventilator? No Is Patient Ambulatory and/or Out of Bed No REE-([facility]-confined to bed) 1351.776 Kcal/Kg value to use for calculation 38 Approximate Energy Requirements Using 2018 kcal/Kg Calculation Used for Recommendations Kcal/kg Additional Notes Protein: 1.5-2 g/Kg ABW; 101- 130 g/day. Fluids: 1 ml/Kcal, or as per MD. Nutrition Intervention Change Diet Order: When pertinent, advance to Cardiac Diet. Goal #1 Adjust the dietary intervention to better serve Pt's needs and clinical conditions during LOS. Follow-Up By: 08/28/21 Additional Comments When pertinent, start monitoring food tolerance, %PO intake of meals, and BM.
--- NOTE | 2021-08-27 17:49 | XRay Report ---
4 fluoroscopic images submitted Indication: Intraoperative localization Impression: 4 images of the right femur/hip were submitted for documentation purposes with radiology involvement. Intertrochanteric fracture fixation with near-anatomic alignment and no immediate comp lication. Please refer to the operative note for complete details. Fluoroscopic time: 0.9 minutes Signer Name: Geoff Barros MD Signed: 08/27/2021 5:44 PM Workstation Name: [id number]
[2021-08-28] MEDS: LACTATED RINGERS 1,000 ML IV SCH ×2 (01:34→05:03)
[2021-08-28 05:53] LABS: Hematocrit 20.6 % (30.3-42.9); Hemoglobin 6.5 gm/dl (10.1-14.3)
[2021-08-28 06:17] LABS: Blood Urea Nitrogen 19 mg/dL (7-17); Calcium 8.6 mg/dL (8.4-10.2); Hemolysis Index 1
[2021-08-28 06:21] LABS: BUN/Creatinine Ratio 27
[2021-08-28] MEDS ORDERED: SODIUM CHLORIDE 0.9% 500 ML 500 ML IV NR (07:40)
[2021-08-28] MEDS: APIXABAN 2.5 MG TAB PO SCH ×2 (09:00→21:33)
[2021-08-28] MEDS: HEPARIN 5,000 UNIT/1 ML VIAL SUB-Q SCH (09:00)
[2021-08-28] MEDS: levETIRAcetam 500 MG TAB PO SCH ×2 (09:00→21:33)
--- NOTE | 2021-08-28 09:08 | Electrocardiograph Report ---
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
[2021-08-28] MEDS ORDERED: ENOXAPARIN 40 MG/0.4 ML INJ SUB-Q SCH (10:00)
[2021-08-28] MEDS: oxyCODONE /ACETAMINOPHEN 5-325MG TAB PO PRN (10:50)
[2021-08-28] MEDS: KETOROLAC 30 MG/1 ML INJ IV PRN (10:51)
--- NOTE | 2021-08-28 12:44 | Event Note ---
Date: 08/28/21 Patient evaluated for IRU. Not medically stable currently - relative hypotension 102/67 and Hgb 6.5 this AM. Poor Disposition for discharge as patient refused to answer questions about discharge location and assistance. May need SNF/[facility] replacement.
--- NOTE | 2021-08-28 15:16 | Progress Note ---
Assessment and Plan Assessment and plan: #Intertrochanteric fracture of right femur status post repair -Fracture seen on x-ray of hip -Supportive care, as needed pain medications -Orthopedic surgery consulted; appreciate recs. Status post intertrochanteric repair on 08/27/2021. -Physical therapy consulted; appreciate recs. Recommending acute rehab. -Starting apixaban 2.5 mg twice daily x35 days today (08/28/2021). #Normocytic asymptomatic anemia #Acute blood loss anemia -s/p 1 packed red blood cells on admission -Hemoglobin decreased to 6.5 status post surgical repair of right hip fracture. Ordered 1 unit packed RBC for transfusion this morning. #Hypertension -Patient reports taking medication at home, unable to recall at this time -We will restart home blood pressure medication once reconciliation complete -Blood pressure controlled currently, will continue to monitor #Hypokalemiaresolved -Potassium 3.2 -Repleted. Continue to monitor. #Tobacco dependence #Tobacco/Smoking cessation counseling - Counseled patient about the importance of smoking cessation and the possible sequelae as a result of continued tobacco consumption. The patient expresses understanding. -Time: +15 mins #Advanced care planning -Disease education conducted, care plan discussed, diagnoses discussed, prognosis discussed, patient is full code, patient acknowledges understanding and agreement with care plan, +30 minutes. #Discharge planning - Patient is pending determination of disposition: Will patient be discharged to acute rehab. - Case management has been made aware. - Discharge is tentatively 2-3 days Disposition Plan: Continue medical management Total Time Spent with Patient (Minutes): 45 minutes History Interval history: Patient underwent surgical repair of right hip fracture with orthopedic surgery yesterday. Patient tolerated the procedure well. Hospitalist Physical - Constitutional Vitals: Temp Pulse Resp BP Pulse Ox 98.4 F 97 H 18 80/53 87 08/28/21 12:31 08/28/21 12:31 08/28/21 12:31 08/28/21 14:21 08/28/21 14:21 General appearance: Present: mild distress, well-nourished - EENT Eyes: Present: PERRL, EOM intact ENT: hearing intact, clear oral mucosa, dentition normal - Neck Neck: Present: supple, normal ROM - Respiratory Respiratory effort: normal Respiratory: bilateral: CTA - Cardiovascular Rhythm: regular Heart Sounds: Present: S1 & S2 - Extremities Extremities: no ischemia, pulses intact, pulses symmetrical, No edema, normal temperature, normal color Extremity abnormal: tenderness (Significant yet appropriate tenderness of the right hip status post surgical repair) Peripheral Pulses: within normal limits - Abdominal General gastrointestinal: soft, non-tender, non-distended, normal bowel sounds - Integumentary Integumentary: Present: clear, warm, dry - Psychiatric Psychiatric: appropriate mood/affect, intact judgment & insight, memory intact, cooperative - Neurologic Neurologic: CNII-XII intact - Allied Health Allied health notes reviewed: nursing HEART Score - HEART Score Troponin: Troponin T < 0.010 ng/mL (0.00-0.029) 08/22/21 13:31 Results - Labs CBC & Chem 7: 08/28/21 04:28 08/28/21 04:27 Labs: Laboratory Last Values WBC 7.0 K/mm3 (4.5-11.0) 08/27/21 06:05 RBC 2.62 M/mm3 (3.65-5.03) L 08/27/21 06:05 Hgb 6.5 gm/dl (10.1-14.3) L 08/28/21 04:28 Hct 20.6 % (30.3-42.9) L 08/28/21 04:28 MCV 88 fl (79-97) 08/27/21 06:05 MCH 28 pg (28-32) 08/27/21 06:05 MCHC 31 % (30-34) 08/27/21 06:05 RDW 15.6 % (13.2-15.2) H 08/27/21 06:05 Plt Count 451 K/mm3 (140-440) H 08/27/21 06:05 Lymph % (Auto) 16.6 % (13.4-35.0) 08/23/21 04:00 [place] % (Auto) 8.8 % (0.0-7.3) H 08/23/21 04:00 Eos % (Auto) 0.1 % (0.0-4.3) 08/23/21 04:00 Baso % (Auto) 0.2 % (0.0-1.8) 08/23/21 04:00 Lymph # (Auto) 1.0 K/mm3 (1.2-5.4) L 08/23/21 04:00 [place] # (Auto) 0.5 K/mm3 (0.0-0.8) 08/23/21 04:00 Eos # (Auto) 0.0 K/mm3 (0.0-0.4) 08/23/21 04:00 Baso # (Auto) 0.0 K/mm3 (0.0-0.1) 08/23/21 04:00 Seg Neutrophils % 74.3 % (40.0-70.0) H 08/23/21 04:00 Seg Neutrophils # 4.3 K/mm3 (1.8-7.7) 08/23/21 04:00 Sodium 140 mmol/L (137-145) 08/28/21 04:27 Potassium 4.8 mmol/L (3.6-5.0) D 08/28/21 04:27 Chloride 102.9 mmol/L (98-107) 08/28/21 04:27 Carbon Dioxide 30 mmol/L (22-30) 08/28/21 04:27 Anion Gap 12 mmol/L 08/28/21 04:27 BUN 19 mg/dL (7-17) H 08/28/21 04:27 Creatinine 0.7 mg/dL (0.6-1.2) 08/28/21 04:27 Estimated GFR > 60 ml/min 08/28/21 04:27 BUN/Creatinine Ratio 27 % 08/28/21 04:27 Glucose 101 mg/dL (65-100) H 08/28/21 04:27 POC Glucose 82 mg/dL (70-105) 08/22/21 22:10 Calcium 8.6 mg/dL (8.4-10.2) 08/28/21 04:27 Total Bilirubin 0.20 mg/dL (0.1-1.2) 08/22/21 13:31 AST 18 units/L (5-40) 08/22/21 13:31 ALT 12 units/L (7-56) 08/22/21 13:31 Alkaline Phosphatase 67 units/L (35-129) 08/22/21 13:31 Troponin T < 0.010 ng/mL (0.00-0.029) 08/22/21 13:31 NT-Pro-B Natriuret Pep 300.2 pg/mL (0-900) 08/22/21 13:31 Total Protein 6.5 g/dL (6.3-8.2) 08/22/21 13:31 Albumin 3.7 g/dL (3.9-5) L 08/22/21 13:31 Albumin/Globulin Ratio 1.3 % 08/22/21 13:31 Urine Color Straw (Yellow) 08/22/21 15:51 Urine Turbidity Clear (Clear) 08/22/21 15:51 Urine pH 7.5 (5.0-7.0) H 08/22/21 15:51 Ur Specific [place] 1.010 (1.003-1.030) 08/22/21 15:51 Urine Protein 30 mg/dl mg/dL (Negative) 08/22/21 15:51 Urine Glucose (UA) Negative mg/dL (Negative) 08/22/21 15:51 Urine Ketones 80 mg/dL (Negative) 08/22/21 15:51 Urine Blood Negative (Negative) 08/22/21 15:51 Urine Nitrite Negative (Negative) 08/22/21 15:51 Ur Reducing Substances Not Reportable 08/22/21 15:51 Urine Bilirubin Negative (Negative) 08/22/21 15:51 Urine Ictotest Not Reportable 08/22/21 15:51 Urine Urobilinogen < 2.0 mg/dL (<2.0) 08/22/21 15:51 Ur Leukocyte Esterase Negative (Negative) 08/22/21 15:51 Urine WBC (Auto) 4.0 /HPF (0.0-6.0) 08/22/21 15:51 Urine RBC (Auto) 2.0 /HPF (0.0-6.0) 08/22/21 15:51 Urine Bacteria (Auto) 1+ /HPF (Negative) 08/22/21 15:51 Amorphous Crystals 3+ 08/22/21 15:51 Urine Mucus Few /HPF 08/22/21 15:51 Urine Opiates Screen Negative 08/22/21 15:51 Urine Methadone Screen Negative 08/22/21 15:51 Ur Barbiturates Screen Negative 08/22/21 15:51 Ur Phencyclidine Scrn Negative 08/22/21 15:51 Ur Amphetamines Screen Negative 08/22/21 15:51 U Benzodiazepines Scrn Negative 08/22/21 15:51 Urine Cocaine Screen Negative 08/22/21 15:51 U Marijuana (THC) Screen Positive 08/22/21 15:51 Drugs of Abuse Note Disclamer 08/22/21 15:51 Blood Type B POSITIVE 08/27/21 13:10 Antibody Screen Negative 08/27/21 13:10 Crossmatch See Detail 08/27/21 13:10 Dior/IV: Voiding Method Bedside Commode Active Medications - Current Medications Current Medications: Generic Name Dose Route Start Last Admin Trade Name Freq PRN Reason Stop Dose Admin Acetaminophen 650 mg 08/27/21 15:14 Acetaminophen 325 Mg Tab PO Q4H PRN Pain MILD(1-3)/Fever >100.5/CENTENO Albuterol 2.5 mg 08/22/21 17:58 Albuterol 2.5 Mg/3 Ml Nebu IH Q4HRT PRN Shortness Of Breath Apixaban 2.5 mg 08/28/21 10:00 08/28/21 09:00 Apixaban 2.5 Mg Tab PO 10/02/21 09:59 2.5 mg Q12HR FABIAN Administration Protocol Lactated Ringer's 1,000 mls @ 125 mls/hr 08/27/21 13:15 08/28/21 05:03 Lactated Ringers IV 125 mls/hr DIRECT FABIAN Administration Sodium Chloride 500 mls @ 0 mls/hr 08/28/21 07:40 08/28/21 09:04 Nacl 0.9% 500 Ml IV 08/29/21 07:39 50 mls/hr ONCE NR Administration As Directed Ketorolac Tromethamine 15 mg 08/27/21 15:14 08/28/21 10:51 Ketorolac 30 Mg/1 Ml Inj IV 09/01/21 15:13 15 mg Q6H PRN Administration Pain, Moderate (4-6) Levetiracetam 1,000 mg 08/24/21 22:00 08/28/21 09:00 Levetiracetam 500 Mg Tab PO 1,000 mg BID FABIAN Administration Morphine Sulfate 2 mg 08/27/21 15:14 Morphine 2 Mg/1 Ml Inj IV Q4H PRN Pain, Moderate (4-6) Morphine Sulfate 4 mg 08/27/21 15:14 Morphine 4 Mg/1 Ml Inj IV Q4H PRN Pain , Severe (7-10) Ondansetron HCl 4 mg 08/22/21 17:58 Ondansetron 4 Mg/2 Ml Inj IV Q8H PRN Nausea And Vomiting Oxycodone/Acetaminophen 1 tab 08/22/21 17:58 08/28/21 10:50 Oxycodone /Acetaminophen 5-325mg Tab PO 1 tab Q6H PRN Administration Pain, Moderate (4-6) Sodium Chloride 10 ml 08/22/21 22:00 08/28/21 09:00 Sodium Chloride 0.9% 10 Ml Flush Syringe IV 10 ml BID FABIAN Administration Sodium Chloride 10 ml 08/22/21 17:58 08/22/21 18:57 Sodium Chloride 0.9% 10 Ml Flush Syringe IV 10 ml PRN PRN Administration LINE FLUSH Sodium Chloride 10 ml 08/27/21 16:00 Sodium Chloride 0.9% 10 Ml Flush Syringe IV 09/06/21 23:59 PRN NR Nutrition/Malnutrition Assess - Dietary Evaluation Nutrition/Malnutrition Findings: Nutrition Notes Start: 08/26/21 19:46 Freq: Status: Active Protocol: Document 08/26/21 19:46 RA (Rec: 08/26/21 20:07 RA [id number]) Nutrition Notes Need for Assessment generated from: Low BMI Initial or Follow up Assessment Current Diagnosis Hypertension Other Pertinent Diagnosis R-Intertrochanteric Femur Fracture, Seizure, Anemia, Hypokalemia. Current Diet NPO (since 08/26 11:06). Labs/Tests 08/26: K 3.5, Ca 8.3. Pertinent Medications 08/26: Nutritionally unremarkable. 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 Pt states that her Body Weight is 67.132 Kg, according to Admission Documents. Weight Status Underweight Subjective/Other Information RD consult for Low BMI assessment. Pt currently on NPO. Pt is on Room Air, O2 saturation @ 97%, according to Physical Assessment History notes. Pt states that her Body Weight is 67.132 Kg, according to Admission Documents. Pt's Low BMI seems to correspond to a natural body composition, and not related to a sudden loss of body weight nor chronic malnutrition, since no signs of concern were mentioned in the Physical Assessment History or the Progress notes. Percent of energy/protein needs met: Pt currently on NPO. Burn Absent Trauma Present GI Symptoms None Food Allergy No Skin Integrity/Comment Assessment WNL. 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 Pt's Low BMI seems to correspond to a natural body composition, and not related to a sudden loss of body weight nor chronic malnutrition, since no signs of concern were mentioned in the Physical Assessment History or the Progress notes. Etiology Uncertain. As Evidenced by Signs and Symptoms Low BMI on chart. Is patient on ventilator? No Is Patient Ambulatory and/or Out of Bed No REE-([facility]-confined to bed) 1351.776 Kcal/Kg value to use for calculation 38 Approximate Energy Requirements Using 2018 kcal/Kg Calculation Used for Recommendations Kcal/kg Additional Notes Protein: 1.5-2 g/Kg ABW; 101- 130 g/day. Fluids: 1 ml/Kcal, or as per MD. Nutrition Intervention Change Diet Order: When pertinent, advance to Cardiac Diet. Goal #1 Adjust the dietary intervention to better serve Pt's needs and clinical conditions during LOS. Follow-Up By: 08/28/21 Additional Comments When pertinent, start monitoring food tolerance, %PO intake of meals, and BM.
--- NOTE | 2021-08-28 21:27 | Progress Note ---
Assessment and Plan s/p IM nail right hip fx doing ok continue PT and observation Subjective Date of service: 08/28/21 Interval history: no major c/o's noted, receiving PRBC's.... Objective Vital signs: Vital Signs - 12hr 08/28/21 08/28/21 08/28/21 10:00 10:15 10:30 Temperature 98.6 F 98.6 F Pulse Rate 103 H 103 H Respiratory 18 18 18 Rate Blood Pressure 105/66 117/63 Blood Pressure [Left] O2 Sat by Pulse 100 98 Oximetry 08/28/21 08/28/21 08/28/21 10:38 10:50 11:00 Temperature 98.6 F Pulse Rate Respiratory 18 Rate Blood Pressure Blood Pressure [Left] O2 Sat by Pulse 93 Oximetry 08/28/21 08/28/21 08/28/21 11:47 11:53 12:00 Temperature 97.9 F Pulse Rate 94 H Respiratory 18 Rate Blood Pressure 121/64 Blood Pressure [Left] O2 Sat by Pulse 91 90 93 Oximetry 08/28/21 08/28/21 08/28/21 12:11 12:21 12:31 Temperature 98.4 F Pulse Rate 97 H Respiratory 18 Rate Blood Pressure 102/67 102/67 102/67 Blood Pressure [Left] O2 Sat by Pulse 83 L 92 95 Oximetry 08/28/21 08/28/21 08/28/21 12:41 12:51 13:01 Temperature Pulse Rate Respiratory Rate Blood Pressure 102/67 102/67 102/67 Blood Pressure [Left] O2 Sat by Pulse 81 L 79 L 81 L Oximetry 08/28/21 08/28/21 08/28/21 13:11 13:21 13:31 Temperature Pulse Rate Respiratory Rate Blood Pressure 102/67 111/79 111/79 Blood Pressure [Left] O2 Sat by Pulse 80 L 88 92 Oximetry 08/28/21 08/28/21 08/28/21 13:41 13:51 14:01 Temperature Pulse Rate Respiratory Rate Blood Pressure 111/79 111/79 111/79 Blood Pressure [Left] O2 Sat by Pulse 92 90 89 Oximetry 08/28/21 08/28/21 08/28/21 14:11 14:21 16:00 Temperature 99.4 F Pulse Rate 92 H Respiratory 20 Rate Blood Pressure 111/79 80/53 Blood Pressure 133/78 [Left] O2 Sat by Pulse 86 87 100 Oximetry 08/28/21 20:18 Temperature 98.4 F Pulse Rate 97 H Respiratory 18 Rate Blood Pressure Blood Pressure 104/62 [Left] O2 Sat by Pulse 100 Oximetry Incision: clean and dry Weight bearing status: as tolerated - Labs CBC & BMP: 08/28/21 04:28 08/28/21 04:27 Labs: Abnormal lab results 08/23/21 08/27/21 08/28/21 Range/Units 08:18 13:10 04:27 Hgb (10.1-14.3) gm/dl Hct (30.3-42.9) % BUN 19 H (7-17) mg/dL Glucose 101 H (65-100) mg/dL Crossmatch See Detail See Detail 08/28/21 Range/Units 04:28 Hgb 6.5 L (10.1-14.3) gm/dl Hct 20.6 L (30.3-42.9) % BUN (7-17) mg/dL Glucose (65-100) mg/dL Crossmatch
[2021-08-29] MEDS: LACTATED RINGERS 1,000 ML IV SCH ×3 (00:48→21:49)
[2021-08-29 06:32] LABS: Hemoglobin 7.5 gm/dl (10.1-14.3)
[2021-08-29 06:50] LABS: Blood Urea Nitrogen 18 mg/dL (7-17); Calcium 8.7 mg/dL (8.4-10.2); Hemolysis Index 2
[2021-08-29 06:55] LABS: BUN/Creatinine Ratio 26
[2021-08-29] MEDS: APIXABAN 2.5 MG TAB PO SCH ×2 (09:39→21:48)
[2021-08-29] MEDS: levETIRAcetam 500 MG TAB PO SCH ×2 (09:48→21:48)
--- NOTE | 2021-08-29 16:06 | Progress Note ---
Assessment and Plan s/p IM nail right hip fx doing ok continue PT and observation Subjective Date of service: 08/29/21 Interval history: no major c/o's noted, receiving PRBC's.... Objective Vital signs: Vital Signs - 12hr 08/29/21 10:00 O2 Sat by Pulse 97 Oximetry Incision: clean and dry Weight bearing status: as tolerated - Labs CBC & BMP: 08/29/21 06:05 08/29/21 06:05 Labs: Abnormal lab results 08/29/21 08/29/21 Range/Units 06:05 06:05 Hgb 7.5 L (10.1-14.3) gm/dl Hct 24.0 L (30.3-42.9) % Carbon Dioxide 31 H (22-30) mmol/L BUN 18 H (7-17) mg/dL
--- NOTE | 2021-08-29 17:15 | Progress Note ---
Assessment and Plan Assessment and plan: #Intertrochanteric fracture of right femur status post repair -Fracture seen on x-ray of hip -Supportive care, as needed pain medications -Orthopedic surgery consulted; appreciate recs. Status post intertrochanteric repair on 08/27/2021. -Physical therapy consulted; appreciate recs. Recommending acute rehab. Pending authorization. -Continue apixaban 2.5 mg twice daily x35 days completes on 10/02/2021.. #Normocytic asymptomatic anemia #Acute blood loss anemia -s/p 2 packed red blood cells on admission -Hemoglobin decreased to 6.5 status post surgical repair of right hip fracture. #Hypertension -Patient reports taking medication at home, unable to recall at this time -We will restart home blood pressure medication once reconciliation complete -Blood pressure controlled currently, will continue to monitor #Hypokalemiaresolved -Potassium 3.2 -Repleted. Continue to monitor. #Tobacco dependence #Tobacco/Smoking cessation counseling - Counseled patient about the importance of smoking cessation and the possible sequelae as a result of continued tobacco consumption. The patient expresses understanding. -Time: +15 mins #Advanced care planning -Disease education conducted, care plan discussed, diagnoses discussed, prognosis discussed, patient is full code, patient acknowledges understanding and agreement with care plan, +30 minutes. #Discharge planning - Patient is pending determination of disposition: Will patient be discharged to acute rehab. - Case management has been made aware. - Discharge is tentatively 2-3 days Disposition Plan: Continue medical management Total Time Spent with Patient (Minutes): 45 minutes History Interval history: No acute events overnight. Hospitalist Physical - Constitutional Vitals: Temp Pulse Resp BP Pulse Ox 98.4 F 97 H 18 104/62 97 08/28/21 20:18 08/28/21 20:18 08/28/21 20:18 08/28/21 20:18 08/29/21 10:00 General appearance: Present: mild distress, well-nourished - EENT Eyes: Present: PERRL, EOM intact ENT: hearing intact, clear oral mucosa, dentition normal - Neck Neck: Present: supple, normal ROM - Respiratory Respiratory effort: normal Respiratory: bilateral: diminished - Cardiovascular Rhythm: regular Heart Sounds: Present: S1 & S2 - Extremities Extremities: no ischemia, pulses intact, pulses symmetrical, No edema, normal temperature, normal color Extremity abnormal: tenderness (Appropriate tenderness of right hip) Peripheral Pulses: within normal limits - Abdominal General gastrointestinal: soft, non-tender, non-distended, normal bowel sounds - Integumentary Integumentary: Present: clear, warm, dry - Psychiatric Psychiatric: memory intact, depressed, other (Patient refuses to ask for help or analgesics yet describes being in significant pain) - Neurologic Neurologic: CNII-XII intact - Allied Health Allied health notes reviewed: nursing HEART Score - HEART Score Troponin: Troponin T < 0.010 ng/mL (0.00-0.029) 08/22/21 13:31 Results - Labs CBC & Chem 7: 08/29/21 06:05 08/29/21 06:05 Labs: Laboratory Last Values WBC 7.0 K/mm3 (4.5-11.0) 08/27/21 06:05 RBC 2.62 M/mm3 (3.65-5.03) L 08/27/21 06:05 Hgb 7.5 gm/dl (10.1-14.3) L 08/29/21 06:05 Hct 24.0 % (30.3-42.9) L 08/29/21 06:05 MCV 88 fl (79-97) 08/27/21 06:05 MCH 28 pg (28-32) 08/27/21 06:05 MCHC 31 % (30-34) 08/27/21 06:05 RDW 15.6 % (13.2-15.2) H 08/27/21 06:05 Plt Count 451 K/mm3 (140-440) H 08/27/21 06:05 Lymph % (Auto) 16.6 % (13.4-35.0) 08/23/21 04:00 [place] % (Auto) 8.8 % (0.0-7.3) H 08/23/21 04:00 Eos % (Auto) 0.1 % (0.0-4.3) 08/23/21 04:00 Baso % (Auto) 0.2 % (0.0-1.8) 08/23/21 04:00 Lymph # (Auto) 1.0 K/mm3 (1.2-5.4) L 08/23/21 04:00 [place] # (Auto) 0.5 K/mm3 (0.0-0.8) 08/23/21 04:00 Eos # (Auto) 0.0 K/mm3 (0.0-0.4) 08/23/21 04:00 Baso # (Auto) 0.0 K/mm3 (0.0-0.1) 08/23/21 04:00 Seg Neutrophils % 74.3 % (40.0-70.0) H 08/23/21 04:00 Seg Neutrophils # 4.3 K/mm3 (1.8-7.7) 08/23/21 04:00 Sodium 142 mmol/L (137-145) 08/29/21 06:05 Potassium 4.7 mmol/L (3.6-5.0) 08/29/21 06:05 Chloride 103.9 mmol/L (98-107) 08/29/21 06:05 Carbon Dioxide 31 mmol/L (22-30) H 08/29/21 06:05 Anion Gap 12 mmol/L 08/29/21 06:05 BUN 18 mg/dL (7-17) H 08/29/21 06:05 Creatinine 0.7 mg/dL (0.6-1.2) 08/29/21 06:05 Estimated GFR > 60 ml/min 08/29/21 06:05 BUN/Creatinine Ratio 26 % 08/29/21 06:05 Glucose 93 mg/dL (65-100) 08/29/21 06:05 POC Glucose 82 mg/dL (70-105) 08/22/21 22:10 Calcium 8.7 mg/dL (8.4-10.2) 08/29/21 06:05 Total Bilirubin 0.20 mg/dL (0.1-1.2) 08/22/21 13:31 AST 18 units/L (5-40) 08/22/21 13:31 ALT 12 units/L (7-56) 08/22/21 13:31 Alkaline Phosphatase 67 units/L (35-129) 08/22/21 13:31 Troponin T < 0.010 ng/mL (0.00-0.029) 08/22/21 13:31 NT-Pro-B Natriuret Pep 300.2 pg/mL (0-900) 08/22/21 13:31 Total Protein 6.5 g/dL (6.3-8.2) 08/22/21 13:31 Albumin 3.7 g/dL (3.9-5) L 08/22/21 13:31 Albumin/Globulin Ratio 1.3 % 08/22/21 13:31 Urine Color Straw (Yellow) 08/22/21 15:51 Urine Turbidity Clear (Clear) 08/22/21 15:51 Urine pH 7.5 (5.0-7.0) H 08/22/21 15:51 Ur Specific [place] 1.010 (1.003-1.030) 08/22/21 15:51 Urine Protein 30 mg/dl mg/dL (Negative) 08/22/21 15:51 Urine Glucose (UA) Negative mg/dL (Negative) 08/22/21 15:51 Urine Ketones 80 mg/dL (Negative) 08/22/21 15:51 Urine Blood Negative (Negative) 08/22/21 15:51 Urine Nitrite Negative (Negative) 08/22/21 15:51 Ur Reducing Substances Not Reportable 08/22/21 15:51 Urine Bilirubin Negative (Negative) 08/22/21 15:51 Urine Ictotest Not Reportable 08/22/21 15:51 Urine Urobilinogen < 2.0 mg/dL (<2.0) 08/22/21 15:51 Ur Leukocyte Esterase Negative (Negative) 08/22/21 15:51 Urine WBC (Auto) 4.0 /HPF (0.0-6.0) 08/22/21 15:51 Urine RBC (Auto) 2.0 /HPF (0.0-6.0) 08/22/21 15:51 Urine Bacteria (Auto) 1+ /HPF (Negative) 08/22/21 15:51 Amorphous Crystals 3+ 08/22/21 15:51 Urine Mucus Few /HPF 08/22/21 15:51 Urine Opiates Screen Negative 08/22/21 15:51 Urine Methadone Screen Negative 08/22/21 15:51 Ur Barbiturates Screen Negative 08/22/21 15:51 Ur Phencyclidine Scrn Negative 08/22/21 15:51 Ur Amphetamines Screen Negative 08/22/21 15:51 U Benzodiazepines Scrn Negative 08/22/21 15:51 Urine Cocaine Screen Negative 08/22/21 15:51 U Marijuana (THC) Screen Positive 08/22/21 15:51 Drugs of Abuse Note Disclamer 08/22/21 15:51 Blood Type B POSITIVE 08/27/21 13:10 Antibody Screen Negative 08/27/21 13:10 Crossmatch See Detail 08/27/21 13:10 Dior/IV: Voiding Method Bedside Commode Active Medications - Current Medications Current Medications: Generic Name Dose Route Start Last Admin Trade Name Freq PRN Reason Stop Dose Admin Acetaminophen 650 mg 08/27/21 15:14 Acetaminophen 325 Mg Tab PO Q4H PRN Pain MILD(1-3)/Fever >100.5/CENTENO Albuterol 2.5 mg 08/22/21 17:58 Albuterol 2.5 Mg/3 Ml Nebu IH Q4HRT PRN Shortness Of Breath Apixaban 2.5 mg 08/28/21 10:00 08/29/21 09:39 Apixaban 2.5 Mg Tab PO 10/02/21 09:59 2.5 mg Q12HR FABIAN Administration Protocol Lactated Ringer's 1,000 mls @ 125 mls/hr 08/27/21 13:15 08/29/21 10:41 Lactated Ringers IV 125 mls/hr DIRECT FABIAN Administration Ketorolac Tromethamine 15 mg 08/27/21 15:14 08/28/21 10:51 Ketorolac 30 Mg/1 Ml Inj IV 09/01/21 15:13 15 mg Q6H PRN Administration Pain, Moderate (4-6) Levetiracetam 1,000 mg 08/24/21 22:00 08/29/21 09:48 Levetiracetam 500 Mg Tab PO 1,000 mg BID FABIAN Administration Morphine Sulfate 2 mg 08/27/21 15:14 Morphine 2 Mg/1 Ml Inj IV Q4H PRN Pain, Moderate (4-6) Morphine Sulfate 4 mg 08/27/21 15:14 08/29/21 09:39 Morphine 4 Mg/1 Ml Inj IV 4 mg Q4H PRN Administration Pain , Severe (7-10) Ondansetron HCl 4 mg 08/22/21 17:58 Ondansetron 4 Mg/2 Ml Inj IV Q8H PRN Nausea And Vomiting Oxycodone/Acetaminophen 1 tab 08/22/21 17:58 08/28/21 10:50 Oxycodone /Acetaminophen 5-325mg Tab PO 1 tab Q6H PRN Administration Pain, Moderate (4-6) Sodium Chloride 10 ml 08/22/21 22:00 08/29/21 09:43 Sodium Chloride 0.9% 10 Ml Flush Syringe IV 10 ml BID FABIAN Administration Sodium Chloride 10 ml 08/22/21 17:58 08/22/21 18:57 Sodium Chloride 0.9% 10 Ml Flush Syringe IV 10 ml PRN PRN Administration LINE FLUSH Sodium Chloride 10 ml 08/27/21 16:00 Sodium Chloride 0.9% 10 Ml Flush Syringe IV 09/06/21 23:59 PRN NR Nutrition/Malnutrition Assess - Dietary Evaluation Nutrition/Malnutrition Findings: Nutrition Notes Start: 08/26/21 19:46 Freq: Status: Active Protocol: Document 08/28/21 15:23 RA (Rec: 08/28/21 15:49 RA [email or web address]) Nutrition Notes Initial or Follow up Reassessment Current Diagnosis Hypertension Other Pertinent Diagnosis s/p Repair of R- Intertrochanteric Femur Fracture, Seizure, Anemia. Current Diet Mechanical Soft Diet + D Suppl (since D 08/27). Labs/Tests 08/28: BUN 19, Glu 101. Pertinent Medications 08/28: Nutritionally unremarkable. Height 5 ft 10 in Weight 53.1 kg [place] Body Weight (kg) 68.18 BMI 16.7 Weight change and time frame No body weight change reported in 2 days. Weight Status Underweight Subjective/Other Information RD consult for routine F/U on dietary Advancement. Diet advanced to PO, but Pt's PO intake of meals has been Poor (25%), according to ADL notes. I will prescribe Dietary Supplements to compensate for poor or insufficient PO intake of meals. Pt is on Room Air, O2 saturation @ 100%, according to Physical Assessment History notes. Procedure on 08/27: Closed reduction of R-hip fracture, followed by insertion of intramedullar nailing, well tolerated, according to Operative Report notes. Plans for discharge on 08/31 to [facility], according to Progress notes. Percent of energy/protein needs met: Prescribed Mechanical Soft Diet provides for energy/ protein needs (2,048 Kcal/97 g ) during LOS; additionally, Dietary Supplements will compensate for possible poor or insufficient PO intake of meals with 1,050 Kcal and 60 g of protein. Burn Absent Trauma Present GI Symptoms None Food Allergy No Skin Integrity/Comment Surgical wound. 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 As Evidenced by Signs and Symptoms Diet advanced to PO, but Pt's PO intake of meals has been Poor (25%), according to ADL notes. #1 Nutrition Diagnosis Underweight Diagnosis Progress(for reassessment Continues documentation) Is patient on ventilator? No Is Patient Ambulatory and/or Out of Bed No REE-([place]-confined to bed) 1351.776 Kcal/Kg value to use for calculation 38 Approximate Energy Requirements Using 2018 kcal/Kg Calculation Used for Recommendations Kcal/kg Additional Notes Protein: 1.5-2 g/Kg ABW; 101- 130 g/day. Fluids: 1 ml/Kcal, or as per MD. Nutrition Intervention Change Diet Order: Continue Mechanical Soft Diet. When pertinent, advance to Cardiac Diet. Add Supplement/Snack (indicate name/kcal Start 8 fl oz Ensure Enlive; /protein ) TID. Provides kCal: 1,050 Provides Protein (gm) 60 Goal #1 Compensate, through dietary supplementation, for possible poor or insufficient PO intake of meals during LOS. Goal #2 Adjust the dietary intervention to better serve Pt's needs and clinical conditions during LOS. Follow-Up By: 09/04/21 Additional Comments Continue monitoring food tolerance, %PO intake of meals , and BM.
[2021-08-29] MEDS: KETOROLAC 30 MG/1 ML INJ IV PRN (21:48)
[2021-08-30] MEDS: LACTATED RINGERS 1,000 ML IV SCH (09:40)
[2021-08-30] MEDS: levETIRAcetam 500 MG TAB PO SCH (09:40)
[2021-08-30] MEDS: APIXABAN 2.5 MG TAB PO SCH (09:41)
--- NOTE | 2021-08-30 12:02 | Discharge Summary ---
Providers - Providers Date of Admission: 08/22/21 17:58 Date of discharge: 08/30/21 Attending physician: AMEYA VELOZ MD 08/22/21 20:10 Consult to Physician [CONS] Routine Comment: Consulting Provider: NEW HOLT Physician Instructions: Reason For Exam: hip fracture 08/26/21 11:06 Consult to Mental Health [CONS] Routine Reason For Exam: competence evaluation 08/27/21 08:09 Consult Geriatric-Psych [CONS] Routine Consulting Provider: Reason For Exam: Refusing hip fx repair despite signing consent 08/27/21 15:14 Consult to Case Management [CONS] Routine Services Needed at Discharge: Other Notified:: yes Additional Physician Instructions: Assess Discharge needs. Physical Therapy Evaluation and Treat [CONS] Routine Comment: Reason For Exam: Eval and Treat Weight bearing status?: Full wt bearing Assistive devices?: Yes If so list: Walker 08/29/21 14:18 Occupational Therapy Evaluate and Treat [CONS] Routine Comment: Reason For Exam: right hand weakness Primary care physician: FORESTRY ADVISER Hospitalization Reason for admission: Intertrochanteric fracture of right femur Condition: Fair Pertinent studies: Reviewed. Procedures: Repair of intertrochanteric fracture of right femur Hospital course: 71 YO Female with HTN, Seizure Disorder, Nicotine Dependence presents ED for evaluation. Patient reports "I got dizzy and I fell down and hurt my leg". Patient states that she was in her usual state of health while walking to the bus stop and experienced a sudden onset of dizziness. Patient states that she subsequently lost her balance and fell landing on her right hip. Patient states that she felt immediate pain to her right hip. Patient is sharp in nature, 10 out of 10, worsened with movement, relieved somewhat with nonmovement. Patient was unable to stand and bear weight on her right leg. EMS was notified and upon arrival the patient was found to be in distress and subsequent transported to [facility] for further care and evaluation of the aforementioned symptoms. The patient was seen and evaluated in the emergency department. All lab and imaging studies reviewed. Patient found to have a right intertrochanteric femur fracture. Orthopedic surgery team consulted in ED. Patient denies fever, chills, chest pain, palpitation, productive cough, skin rash and recent contact, known exposure to COVID-19. In the ED, the patient was found to be hemodynamically stable. Labs were remarkable for hemoglobin of 7.3 that later decreased to 6.0 requiring multiple transfusions. The patient underwent evaluation of CT cervical spine, CT head noncontrast, CT angio chest, chest x- ray, and knee x-ray that were found to be unremarkable. The patient was found to have an intertrochanteric fracture of her right femur, and orthopedic surgery was consulted. The patient underwent surgical repair successfully on 08/27/2021. The patient has since been evaluated by physical therapy who recommend acute rehab. The patient has been started on apixaban 2.5 mg twice daily, and she will be on this for approximately 35 days (completes on 10/02/2021). Patient is medically clear for discharge. Disposition: [address] [place] [address] Final Discharge Diagnosis (Prints w/discharge instructions): Intertrochanteric fracture of right femur status post repair, normocytic asymptomatic anemia, acute blood loss anemia, hypertension, hypokalemia, tobacco dependence. Time spent for discharge: 45 min Core Measure Documentation - Palliative Care Palliative Care/ Comfort Measures: Not Applicable - Core Measures Any of the following diagnoses?: none Exam - Constitutional Vitals: Temp Pulse Resp BP Pulse Ox 98.6 F 105 H 20 138/87 100 08/30/21 11:14 08/30/21 10:46 08/30/21 11:14 08/30/21 10:46 08/30/21 10:46 General appearance: Present: mild distress, cachectic - EENT Eyes: Present: PERRL, EOM intact ENT: hearing intact, clear oral mucosa, dentition normal - Neck Neck: Present: supple, normal ROM - Respiratory Respiratory effort: normal Respiratory: bilateral: CTA - Cardiovascular Rhythm: regular Heart Sounds: Present: S1 & S2 - Extremities Extremities: no ischemia, pulses intact, pulses symmetrical, No edema, normal temperature, normal color Extremity abnormal: tenderness (Appropriate tenderness of right hip) Peripheral Pulses: within normal limits - Abdominal General gastrointestinal: Present: soft, non-tender, non-distended, normal bowel sounds Female genitourinary: Present: deferred - Rectal Rectal Exam: deferred - Integumentary Integumentary: Present: clear, warm, dry - Musculoskeletal Musculoskeletal: generalized weakness - Psychiatric Psychiatric: appropriate mood/affect, intact judgment & insight - Neurologic Neurologic: CNII-XII intact, moves all extremities - Allied Health Allied health notes reviewed: nursing Plan Activity: advance as tolerated Diet: low salt Additional Instructions: 71 YO Female with HTN, Seizure Disorder, Nicotine Dependence presents ED for evaluation. Patient reports "I got dizzy and I fell down and hurt my leg". Patient states that she was in her usual state of health while walking to the bus stop and experienced a sudden onset of dizziness. Patient states that she subsequently lost her balance and fell landing on her right hip. Patient states that she felt immediate pain to her right hip. Patient is sharp in nature, 10 out of 10, worsened with movement, relieved somewhat with nonmovement. Patient was unable to stand and bear weight on her right leg. EMS was notified and upon arrival the patient was found to be in distress and subsequent transported to [facility] for further care and evaluation of the aforementioned symptoms. The patient was seen and evaluated in the emergency department. All lab and imaging studies reviewed. Patient found to have a right intertrochanteric femur fracture. Orthopedic surgery team c onsulted in ED. Patient denies fever, chills, chest pain, palpitation, productive cough, skin rash and recent contact, known exposure to COVID-19. In the ED, the patient was found to be hemodynamically stable. Labs were remarkable for hemoglobin of 7.3 that later decreased to 6.0 requiring multiple transfusions. The patient underwent evaluation of CT cervical spine, CT head noncontrast, CT angio chest, chest x-ray, and knee x-ray that were found to be unremarkable. The patient was found to have an intertrochanteric fracture of her right femur, and orthopedic surgery was consulted. The patient underwent surgical repair successfully on 08/27/2021. The patient has since been evaluated by physical therapy who recommend acute rehab. The patient has been started on apixaban 2.5 mg twice daily, and she will be on this for approximately 35 days (completes on 10/02/2021). Patient is medically clear for discharge. Care Plan Goals: Patient is medically cleared for discharge. Assessment: 71 YO Female with HTN, Seizure Disorder, Nicotine Dependence presents ED for evaluation. Patient reports "I got dizzy and I fell down and hurt my leg". Patient states that she was in her usual state of health while walking to the bus stop and experienced a sudden onset of dizziness. Patient states that she subsequently lost her balance and fell landing on her right hip. Patient states that she felt immediate pain to her right hip. Patient is sharp in nature, 10 out of 10, worsened with movement, relieved somewhat with nonmovement. Patient was unable to stand and bear weight on her right leg. EMS was notified and upon arrival the patient was found to be in distress and subsequent transported to [facility] for further care and evaluation of the aforementioned symptoms. The patient was seen and evaluated in the emergency department. All lab and imaging studies reviewed. Patient found to have a right intertrochanteric femur fracture. Orthopedic surgery team consulted in ED. Patient denies fever, chills, chest pain, palpitation, productive cough, skin rash and recent contact, known exposure to COVID-19. In the ED, the patient was found to be hemodynamically stable. Labs were remarkable for hemoglobin of 7.3 that later decreased to 6.0 requiring multiple transfusions. The patient underwent evaluation of CT cervical spine, CT head noncontrast, CT angio chest, chest x- ray, and knee x-ray that were found to be unremarkable. The patient was found to have an intertrochanteric fracture of her right femur, and orthopedic surgery was consulted. The patient underwent surgical repair successfully on 08/27/2021. The patient has since been evaluated by physical therapy who recommend acute rehab. The patient has been started on apixaban 2.5 mg twice daily, and she will be on this for approximately 35 days (completes on 10/02/2021). Patient is medically clear for discharge. Follow up with: ANTHONY BISWAS MD [Primary Care Provider] - 3-5 Days DIPESH BOBO MD [Staff Physician] - 14 Days Prescriptions: Apixaban [Eliquis] 2.5 mg PO Q12HR #66 tablet levETIRAcetam 1,000 mg PO BID #60 tab oxyCODONE /ACETAMINOPHEN [Percocet 5/325 mg] 1 tab PO Q6H PRN #20 tablet PRN Reason: Pain, Moderate (4-6)
--- NOTE | 2021-08-30 15:14 | Progress Note ---
Assessment and Plan s/p IM nail right hip fx doing ok continue PT and observation Subjective Date of service: 08/30/21 Interval history: no c/o's noted, resting in bed... Objective Vital signs: Vital Signs - 12hr 08/30/21 08/30/21 08/30/21 03:42 09:24 09:55 Temperature 98.5 F Pulse Rate 96 H Respiratory 16 20 Rate Blood Pressure 117/68 O2 Sat by Pulse 100 99 Oximetry 08/30/21 08/30/21 10:46 11:14 Temperature 98.6 F Pulse Rate 105 H Respiratory 20 Rate Blood Pressure 138/87 O2 Sat by Pulse 100 Oximetry Incision: clean and dry Weight bearing status: as tolerated - Labs CBC & BMP: 08/29/21 06:05 08/29/21 06:05
[2021-08-30 19:11] VITALS: BP 139/83
== END 2021-08-30 19:10 | DRG 481 ==
LOC: ED 11:10 → 3A 17:58
PROVIDERS: ADMIT Internal Medicine; ATTEND Student in an Organized Health Care Education/Training Program
PROC: 30233N1 Transfusion of Nonautologous Red Blood Cells into Peripheral Vein, Percutaneous Approach (ICD-10-PCS; 2021-08-23)
PROC: 0QS636Z Reposition Right Upper Femur with Intramedullary Internal Fixation Device, Percutaneous Approach (ICD-10-PCS; principal; 2021-08-27)
DX: S72.141A Displaced intertrochanteric fracture of right femur, initial encounter for closed fracture (principal); F17.213 Nicotine dependence, cigarettes, with withdrawal; D62 Acute posthemorrhagic anemia; E87.5 Hyperkalemia; D64.89 Other specified anemias; I10 Essential (primary) hypertension; G40.909 Epilepsy, unspecified, not intractable, without status epilepticus; Z83.3 Family history of diabetes mellitus; Z82.49 Family history of ischemic heart disease and other diseases of the circulatory system; W18.39XA Other fall on same level, initial encounter; Y93.89 Activity, other specified; Y92.89 Other specified places as the place of occurrence of the external cause; Y99.8 Other external cause status; E87.6 Hypokalemia; Z71.6 Tobacco abuse counseling
CPT/HCPCS: 36415; 70450; 71045; 71275; 72125; 72170; 80048; 80053; 80307; 81001; 82962; 83880; 84484; 85014; 85018; 85025; 85027; 86850; 86900; 86901; 86920; 93005; 94640; 94760; G0378; J3490; C1713; C1769; J0330; J0690; J1644; J1885; J2001; J2270; J2405; J2704; J3010; J7030; J7040; J7120; P9016; Q9967